=== PATIENT | female | born 1945 | race Caucasian/White ===

== ENCOUNTER 2016-04-26 13:05 | Emergency (ER) | payer MEDICARE ==
[2015-12-11 14:43] VITALS: BMI 29.2
[~2016-04-26 13:05] MED LIST: ATIVAN1 MG PO; ATIVAN2 MG PO; CYMBALTA30 MG PO; EFFEXOR100 MG PO; EFFEXOR37.5 MG PO; FEXOFENADINE HC60 MG PO; FLUTICASONE PRO16 GM NASAL; LIDODERM 5 %1 PATCH TRANSDERM; PEPCID20 MG PO; STRESSTABS WITH1 TAB PO; Stresstabs With Zinc PO; VITAMIN B-12500 MC1 PO; VITAMIN D31000 UNI2 PO; VITAMIN D5000 UNIT PO; ZEBETA10 MG PO; ZEBETA5 MG PO
== END 2016-04-26 15:43 | disposition home or self-care (01) ==
LOC: D.ER 13:05
DX: M54.5 Low back pain (principal)

== ENCOUNTER 2016-05-12 11:34 | Emergency (ER) | payer MEDICARE ==
[2015-12-11 14:43] VITALS: BMI 29.2
== END 2016-05-12 13:54 | disposition home or self-care (01) ==
LOC: D.ER 11:34
DX: M25.551 Pain in right hip (principal)

== ENCOUNTER 2016-05-30 11:14 | Emergency (ER) | payer MEDICARE ==
[2015-12-11 14:43] VITALS: BMI 29.2
== END 2016-05-30 17:39 | disposition home or self-care (01) ==
LOC: D.ER 11:14
DX: M51.36 Other intervertebral disc degeneration, lumbar region (principal); M54.16 Radiculopathy, lumbar region

== ENCOUNTER 2016-06-09 13:43 | Emergency (ER) | payer MEDICARE ==
[2015-12-11 14:43] VITALS: BMI 29.2
== END 2016-06-09 14:40 | disposition home or self-care (01) ==
LOC: D.ER 13:43
DX: G57.00 Lesion of sciatic nerve, unspecified lower limb (principal); M51.16 Intervertebral disc disorders with radiculopathy, lumbar region

== ENCOUNTER 2016-06-19 12:02 | Emergency (ER) | payer MEDICARE ==
[2015-12-11 14:43] VITALS: BMI 29.2
== END 2016-06-19 14:02 | disposition home or self-care (01) ==
LOC: D.ER 12:02
DX: J20.9 Acute bronchitis, unspecified (principal); J06.9 Acute upper respiratory infection, unspecified; H66.91 Otitis media, unspecified, right ear

== ENCOUNTER 2016-07-01 10:30 | Emergency (ER) | payer MEDICARE ==
[2015-12-11 14:43] VITALS: BMI 29.2
== END 2016-07-01 11:45 | disposition home or self-care (01) ==
LOC: D.ER 10:30
DX: M25.551 Pain in right hip (principal)

== ENCOUNTER 2016-07-10 11:06 | Emergency (ER) | payer MEDICARE ==
[2015-12-11 14:43] VITALS: BMI 29.2
== END 2016-07-10 19:40 | disposition home or self-care (01) ==
LOC: D.ER 11:06
DX: M54.41 Lumbago with sciatica, right side (principal); M62.830 Muscle spasm of back; R42 Dizziness and giddiness; W19.XXXA Unspecified fall, initial encounter; Y93.89 Activity, other specified; Y92.019 Unspecified place in single-family (private) house as the place of occurrence of the external cause

== ENCOUNTER 2016-07-12 10:18 | Emergency (ER) | payer MEDICARE ==
[2015-12-11 14:43] VITALS: BMI 29.2
== END 2016-07-12 11:40 | disposition home or self-care (01) ==
LOC: D.ER 10:18
DX: G89.29 Other chronic pain (principal)

== ENCOUNTER 2016-08-21 20:16 | Emergency (ER) | payer MEDICARE ==
[2015-12-11 14:43] VITALS: BMI 29.2
[2016-08-21 20:51] LABS: BASOPHILS 0.4 % (0-2); HEMATOCRIT 42.6 % (36.0-48.0); HEMOGLOBIN 13.4 g/dL (12-16); IMMATURE GRANULOCYTES 0.3 % (0-5); LYMPHOCYTES 28.9 % (15-50); MCH 27.5 pg (26.0-34.0); MCHC 31.5 g/dL (31.0-37.0); MCV 87.3 fL (80.0-100.0); MEAN PLATELET VOLUME 10.2 fL (7.4-10.4); MONOCYTES 10.7 % (2-11); NEUTROPHILS 56.7 % (40-80); PLATELET COUNT 195 10x3/uL (130-400); RBC 4.88 10x6/uL (4.00-5.40); RDW 13.8 % (11.5-14.5); WBC 7.8 10x3/uL (4.8-10.8)
[2016-08-21 21:06] LABS: ALBUMIN 3.5 g/dL (3.4-5.0); ALKALINE PHOSPHATASE 64 U/L (46-116); ALT (SGPT) 22 U/L (10-68); AMYLASE - SERUM 31 U/L (25-115); BILIRUBIN - TOTAL 0.27 mg/dL (0.2-1.3); CALC OSMOLALITY 276 mosm/kg (275-300); CALCIUM 8.7 mg/dL (8.5-10.1); CARBON DIOXIDE 30.1 mmol/L (21.0-32.0); CHLORIDE - SERUM 103 mmol/L (98-107); CREATININE - SERUM 0.7 mg/dL (0.6-1.3); GLUCOSE 102 mg/dL (74-106); LIPASE 165 U/L (73-393); POTASSIUM - SERUM 3.7 mmol/L (3.5-5.1); PROTEIN - SERUM 7.2 g/dL (6.4-8.2); SODIUM 139 mmol/L (136-145); UREA NITROGEN 10 mg/dL (7-18); eGFR NON AFRICAN AMERICAN 88 mL/min (90-120)
[2016-08-21 21:19] LABS: APPEARANCE CLEAR (CLEAR); BILIRUBIN NEGATIVE (NEGATIVE); COLOR YELLOW (YELLOW); GLUCOSE NEGATIVE (NEGATIVE); KETONE NEGATIVE (NEGATIVE); LEUKOCYTE ESTERASE NEGATIVE (NEGATIVE); NITRITE NEGATIVE (NEGATIVE); PROTEIN NEGATIVE (NEGATIVE); UROBILINOGEN NORMAL (NORMAL)
[2016-08-21 21:29] LABS: UDS - AMPHET NEGATIVE QUAL (NEGATIVE); UDS - BARB NEGATIVE QUAL (NEGATIVE); UDS - BENZO NEGATIVE QUAL (NEGATIVE); UDS - COCAINE NEGATIVE QUAL (NEGATIVE); UDS - METH NEGATIVE QUAL (NEGATIVE); UDS - OPIATE NEGATIVE QUAL (NEGATIVE); UDS - PCP NEGATIVE QUAL (NEGATIVE); UDS - THC NEGATIVE QUAL (NEGATIVE)
== END 2016-08-21 22:05 | disposition home or self-care (01) ==
LOC: D.ER 20:16
PROVIDERS: Emergency Medicine; Nurse Practitioner Family
DX: R10.13 Epigastric pain (principal); R11.0 Nausea

== ENCOUNTER 2016-08-28 10:31 | Emergency (ER) | payer MEDICARE ==
[2015-12-11 14:43] VITALS: BMI 29.2
== END 2016-08-28 15:20 | disposition left against medical advice (07) ==
LOC: D.ER 10:31
DX: F41.0 Panic disorder [episodic paroxysmal anxiety] (principal)

== ENCOUNTER → 2016-08-28 | Emergency (ER) | payer MEDICARE ==
[2015-12-11 14:43] VITALS: BMI 29.2
== END | disposition home or self-care (01) ==
LOC: D.ER 10:31
DX: Z02.9 Encounter for administrative examinations, unspecified (principal)

== ENCOUNTER 2016-09-15 15:40 | Emergency (ER) | payer MEDICARE ==
[2015-12-11 14:43] VITALS: BMI 29.2
== END 2016-09-15 18:25 | disposition home or self-care (01) ==
LOC: D.ER 15:40
DX: R10.13 Epigastric pain (principal)

== ENCOUNTER 2016-10-27 20:35 | Emergency (ER) | payer MEDICARE ==
[2015-12-11 14:43] VITALS: BMI 29.2
[2016-10-27 21:06] LABS: BASOPHILS 0.4 % (0-2); EOSINOPHILS 2.5 % (0-7); HEMATOCRIT 41.4 % (36.0-48.0); IMMATURE GRANULOCYTES 0.1 % (0-5); LYMPHOCYTES 31.7 % (15-50); MCH 26.9 pg (26.0-34.0); MCHC 31.4 g/dL (31.0-37.0); MCV 85.7 fL (80.0-100.0); MONOCYTES 10.5 % (2-11); NEUTROPHILS 54.8 % (40-80); PLATELET COUNT 187 10x3/uL (130-400); RBC 4.83 10x6/uL (4.00-5.40); RDW 13.9 % (11.5-14.5); WBC 7.2 10x3/uL (4.8-10.8)
[2016-10-27 21:18] LABS: ALBUMIN 3.5 g/dL (3.4-5.0); ALKALINE PHOSPHATASE 64 U/L (46-116); ALT (SGPT) 24 U/L (10-68); BILIRUBIN - TOTAL 0.28 mg/dL (0.2-1.3); CALC OSMOLALITY 285 mosm/kg (275-300); CALCIUM 8.8 mg/dL (8.5-10.1); CARBON DIOXIDE 29.6 mmol/L (21.0-32.0); CHLORIDE - SERUM 104 mmol/L (98-107); CREATININE - SERUM 0.7 mg/dL (0.6-1.3); GLUCOSE 135 mg/dL (74-106); POTASSIUM - SERUM 3.7 mmol/L (3.5-5.1); PROTEIN - SERUM 7.5 g/dL (6.4-8.2); SODIUM 143 mmol/L (136-145); UREA NITROGEN 9 mg/dL (7-18); eGFR NON AFRICAN AMERICAN 88 mL/min (90-120)
[2016-10-27 21:28] LABS: CHOL - HDL RATIO 3.3 ratio (2.3-4.1); CHOLESTEROL, TOTAL 152 mg/dL (0-200); CKMB 0.8 U/L (0.0-3.6); CREATINE KINASE 84 UL (21-215); HDL CHOLESTEROL 46 mg/dL (32-96); LDL CHOLESTEROL 79 mg/dL (0-100); LDL-HDL RATIO 1.7 ratio (1.5-3.5); TRIGLYCERIDE 139 mg/dL (30-200)
[2016-10-27 21:29] LABS: TROPONIN-I < 0.017 ng/mL (0.000-0.060)
== END 2016-10-27 23:00 | disposition home or self-care (01) ==
LOC: D.ER 20:35
PROVIDERS: Emergency Medicine
DX: R07.9 Chest pain, unspecified (principal); R00.0 Tachycardia, unspecified

== ENCOUNTER 2016-12-01 18:49 | Emergency (ER) | payer MEDICARE ==
[2015-12-11 14:43] VITALS: BMI 29.2
== END 2016-12-01 20:03 | disposition home or self-care (01) ==
LOC: D.ER 18:49
DX: M16.11 Unilateral primary osteoarthritis, right hip (principal); G89.29 Other chronic pain; R00.2 Palpitations; F41.9 Anxiety disorder, unspecified

== ENCOUNTER 2016-12-16 17:29 | Emergency (ER) | payer MEDICARE ==
[2015-12-11 14:43] VITALS: BMI 29.2
== END 2016-12-16 19:35 | disposition home or self-care (01) ==
LOC: D.ER 17:29
DX: F41.0 Panic disorder [episodic paroxysmal anxiety] (principal)

== ENCOUNTER 2016-12-27 17:03 | Emergency (ER) | payer MEDICARE ==
[2015-12-11 14:43] VITALS: BMI 29.2
== END 2016-12-27 18:16 | disposition home or self-care (01) ==
LOC: D.ER 17:03
DX: M25.551 Pain in right hip (principal); G89.29 Other chronic pain; R00.2 Palpitations

== ENCOUNTER 2017-01-09 10:13 | Emergency (ER) | payer MEDICARE ==
[2015-12-11 14:43] VITALS: BMI 29.2
== END 2017-01-09 14:30 | disposition home or self-care (01) ==
LOC: D.ER 10:13
DX: F41.0 Panic disorder [episodic paroxysmal anxiety] (principal); G89.29 Other chronic pain

== ENCOUNTER 2017-01-19 17:13 | Emergency (ER) | payer MEDICARE ==
[2015-12-11 14:43] VITALS: BMI 29.2
[2017-01-19 17:51] LABS: BASOPHILS 0.4 % (0-2); EOSINOPHILS 4.6 % (0-7); HEMATOCRIT 41.2 % (36.0-48.0); HEMOGLOBIN 13.1 g/dL (12-16); IMMATURE GRANULOCYTES 0.3 % (0-5); LYMPHOCYTES 30.7 % (15-50); MCH 27.1 pg (26.0-34.0); MCHC 31.8 g/dL (31.0-37.0); MCV 85.3 fL (80.0-100.0); MEAN PLATELET VOLUME 10.3 fL (7.4-10.4); MONOCYTES 9.3 % (2-11); NEUTROPHILS 54.7 % (40-80); PLATELET COUNT 210 10x3/uL (130-400); RBC 4.83 10x6/uL (4.00-5.40); RDW 13.8 % (11.5-14.5); WBC 7.2 10x3/uL (4.8-10.8)
[2017-01-19 18:06] LABS: ALBUMIN 3.7 g/dL (3.4-5.0); ALKALINE PHOSPHATASE 63 U/L (46-116); ALT (SGPT) 26 U/L (10-68); BILIRUBIN - TOTAL 0.31 mg/dL (0.2-1.3); CALC OSMOLALITY 280 mosm/kg (275-300); CARBON DIOXIDE 30.3 mmol/L (21.0-32.0); CHLORIDE - SERUM 103 mmol/L (98-107); CREATININE - SERUM 0.7 mg/dL (0.6-1.3); GLUCOSE 111 mg/dL (74-106); POTASSIUM - SERUM 4.1 mmol/L (3.5-5.1); PROTEIN - SERUM 7.5 g/dL (6.4-8.2); SODIUM 141 mmol/L (136-145); UREA NITROGEN 11 mg/dL (7-18); eGFR NON AFRICAN AMERICAN 88 mL/min (90-120)
[2017-01-19 18:14] LABS: CKMB 0.9 U/L (0.0-3.6); CREATINE KINASE 96 UL (21-215)
[2017-01-19 18:15] LABS: TROPONIN-I < 0.017 ng/mL (0.000-0.060)
== END 2017-01-19 19:53 | disposition home or self-care (01) ==
LOC: D.ER 17:13
PROVIDERS: Emergency Medicine
DX: F41.9 Anxiety disorder, unspecified (principal); F41.0 Panic disorder [episodic paroxysmal anxiety]

== ENCOUNTER 2017-01-31 19:33 | Emergency (ER) | payer MEDICARE ==
[2015-12-11 14:43] VITALS: BMI 29.2
== END 2017-01-31 21:14 | disposition home or self-care (01) ==
LOC: D.ER 19:33
DX: F41.9 Anxiety disorder, unspecified (principal)

== ENCOUNTER 2017-02-13 19:28 | Emergency (ER) | payer SELFPAY ==
[2015-12-11 14:43] VITALS: BMI 29.2
== END 2017-02-13 20:28 | disposition home or self-care (01) ==
LOC: D.ER 19:28
DX: S39.012A Strain of muscle, fascia and tendon of lower back, initial encounter (principal); X58.XXXA Exposure to other specified factors, initial encounter; Y93.89 Activity, other specified; Y92.029 Unspecified place in mobile home as the place of occurrence of the external cause

== ENCOUNTER 2017-02-18 14:10 | Emergency (ER) | payer MEDICARE ==
[2015-12-11 14:43] VITALS: BMI 29.2
[2017-02-18 16:08] LABS: APPEARANCE CLEAR (CLEAR); BILIRUBIN NEGATIVE (NEGATIVE); COLOR YELLOW (YELLOW); GLUCOSE NEGATIVE (NEGATIVE); KETONE NEGATIVE (NEGATIVE); NITRITE NEGATIVE (NEGATIVE); PROTEIN NEGATIVE (NEGATIVE); SPECIFIC GRAVITY 1.015 (1.005-1.020); UROBILINOGEN NORMAL (NORMAL)
== END 2017-02-18 16:00 | disposition home or self-care (01) ==
LOC: D.ER 14:10
PROVIDERS: Nurse Practitioner Family
DX: M54.5 Low back pain (principal); S39.012A Strain of muscle, fascia and tendon of lower back, initial encounter; X50.0XXA Overexertion from strenuous movement or load, initial encounter; Y93.89 Activity, other specified; Y92.89 Other specified places as the place of occurrence of the external cause; M62.838 Other muscle spasm

== ENCOUNTER 2017-02-27 14:54 | Emergency (ER) | payer MEDICARE ==
[2015-12-11 14:43] VITALS: BMI 29.2
== END 2017-02-27 16:41 | disposition home or self-care (01) ==
LOC: D.ER 14:54
DX: F43.20 Adjustment disorder, unspecified (principal); F41.9 Anxiety disorder, unspecified

== ENCOUNTER 2017-03-02 18:16 | Emergency (ER) | payer MEDICARE ==
[2015-12-11 14:43] VITALS: BMI 29.2
== END 2017-03-02 19:13 | disposition home or self-care (01) ==
LOC: D.ER 18:16
DX: F41.9 Anxiety disorder, unspecified (principal); F43.20 Adjustment disorder, unspecified; M25.551 Pain in right hip

== ENCOUNTER 2017-03-13 19:38 | Emergency (ER) | payer MEDICARE ==
[2015-12-11 14:43] VITALS: BMI 29.2
== END 2017-03-13 22:36 | disposition home or self-care (01) ==
LOC: D.ER 19:38
DX: M54.12 Radiculopathy, cervical region (principal); F43.20 Adjustment disorder, unspecified

== ENCOUNTER 2017-03-15 20:25 | Emergency (ER) | payer MEDICARE ==
[2015-12-11 14:43] VITALS: BMI 29.2
== END 2017-03-15 21:42 | disposition home or self-care (01) ==
LOC: D.ER 20:25
DX: M16.11 Unilateral primary osteoarthritis, right hip (principal)

== ENCOUNTER 2017-04-13 14:24 | Emergency (ER) | payer MEDICARE ==
[2015-12-11 14:43] VITALS: BMI 29.2
== END 2017-04-13 16:54 | disposition home or self-care (01) ==
LOC: D.ER 14:24
DX: S70.01XA Contusion of right hip, initial encounter (principal); W07.XXXA Fall from chair, initial encounter; Y93.89 Activity, other specified; Y92.89 Other specified places as the place of occurrence of the external cause

== ENCOUNTER 2017-04-14 09:29 | Emergency (ER) | payer MEDICARE ==
[2015-12-11 14:43] VITALS: BMI 29.2
== END 2017-04-14 11:25 | disposition home or self-care (01) ==
LOC: D.ER 09:29
DX: F41.9 Anxiety disorder, unspecified (principal)

== ENCOUNTER 2017-04-17 12:59 | Emergency (ER) | payer MEDICARE ==
[2015-12-11 14:43] VITALS: BMI 29.2
== END 2017-04-17 14:22 | disposition left against medical advice (07) ==
LOC: D.ER 12:59
DX: F41.0 Panic disorder [episodic paroxysmal anxiety] (principal)

== ENCOUNTER 2017-04-19 12:56 | Emergency (ER) | payer MEDICARE ==
[2015-12-11 14:43] VITALS: BMI 29.2
== END 2017-04-19 14:30 | disposition home or self-care (01) ==
LOC: D.ER 12:56
DX: F41.9 Anxiety disorder, unspecified (principal)

== ENCOUNTER 2017-05-03 15:12 | Emergency (ER) | payer MEDICARE ==
[2015-12-11 14:43] VITALS: BMI 29.2
== END 2017-05-03 17:51 | disposition home or self-care (01) ==
LOC: D.ER 15:12
DX: Z57.4 Occupational exposure to toxic agents in agriculture (principal); R42 Dizziness and giddiness

== ENCOUNTER 2017-05-10 16:56 | Emergency (ER) | payer MEDICARE ==
[2015-12-11 14:43] VITALS: BMI 29.2
== END 2017-05-10 18:35 | disposition home or self-care (01) ==
LOC: D.ER 16:56
DX: M62.838 Other muscle spasm (principal); M25.551 Pain in right hip

== ENCOUNTER 2017-05-17 15:15 | Emergency (ER) | payer MEDICARE ==
[2015-12-11 14:43] VITALS: BMI 29.2
== END 2017-05-17 15:20 | disposition left against medical advice (07) ==
LOC: D.ER 15:15
DX: J40 Bronchitis, not specified as acute or chronic (principal); J06.9 Acute upper respiratory infection, unspecified; M25.50 Pain in unspecified joint

== ENCOUNTER 2017-05-18 11:57 | Emergency (ER) | payer MEDICARE ==
[2015-12-11 14:43] VITALS: BMI 29.2
== END 2017-05-18 15:20 | disposition home or self-care (01) ==
LOC: D.ER 11:57
DX: J40 Bronchitis, not specified as acute or chronic (principal); J06.9 Acute upper respiratory infection, unspecified; M25.50 Pain in unspecified joint

== ENCOUNTER 2017-05-20 23:13 | Emergency (ER) | payer MEDICARE ==
[2015-12-11 14:43] VITALS: BMI 29.2
== END 2017-05-21 01:44 | disposition home or self-care (01) ==
LOC: D.ER 23:13
DX: J20.9 Acute bronchitis, unspecified (principal)

== ENCOUNTER 2017-05-31 19:25 | Emergency (ER) | payer MEDICARE ==
[2015-12-11 14:43] VITALS: BMI 29.2
== END 2017-05-31 21:37 | disposition home or self-care (01) ==
LOC: D.ER 19:25
DX: M25.551 Pain in right hip (principal); S39.012A Strain of muscle, fascia and tendon of lower back, initial encounter; X50.0XXA Overexertion from strenuous movement or load, initial encounter; Y93.89 Activity, other specified; Y92.89 Other specified places as the place of occurrence of the external cause

== ENCOUNTER 2017-06-18 14:02 | Emergency (ER) | payer MEDICARE ==
[2015-12-11 14:43] VITALS: BMI 29.2
[2017-06-18 14:41] LABS: BASOPHILS 0.3 % (0-2); EOSINOPHILS 2.4 % (0-7); HEMATOCRIT 42.5 % (36.0-48.0); HEMOGLOBIN 13.6 g/dL (12-16); IMMATURE GRANULOCYTES 0.1 % (0-5); LYMPHOCYTES 28.4 % (15-50); MCH 27.5 pg (26.0-34.0); MEAN PLATELET VOLUME 10.2 fL (7.4-10.4); MONOCYTES 8.9 % (2-11); NEUTROPHILS 59.9 % (40-80); PLATELET COUNT 173 10x3/uL (130-400); RBC 4.94 10x6/uL (4.00-5.40)
[2017-06-18 14:52] LABS: APPEARANCE CLEAR (CLEAR); BACTERIA MODERATE /hpf (NONE SEEN); BILIRUBIN NEGATIVE (NEGATIVE); COLOR YELLOW (YELLOW); GLUCOSE NEGATIVE (NEGATIVE); KETONE NEGATIVE (NEGATIVE); MUCUS <1+ /lpf (NONE SEEN); NITRITE NEGATIVE (NEGATIVE); PROTEIN NEGATIVE (NEGATIVE); SPECIFIC GRAVITY 1.015 (1.005-1.020); UROBILINOGEN NORMAL (NORMAL)
[2017-06-18 15:02] LABS: ALBUMIN 3.7 g/dL (3.4-5.0); ALKALINE PHOSPHATASE 55 U/L (46-116); ALT (SGPT) 27 U/L (10-68); BILIRUBIN - TOTAL 0.49 mg/dL (0.2-1.3); CALC OSMOLALITY 275 mosm/kg (275-300); CALCIUM 8.8 mg/dL (8.5-10.1); CHLORIDE - SERUM 104 mmol/L (98-107); CREATININE - SERUM 0.7 mg/dL (0.6-1.3); GLUCOSE 97 mg/dL (74-106); POTASSIUM - SERUM 3.3 mmol/L (3.5-5.1); PROTEIN - SERUM 7.2 g/dL (6.4-8.2); SODIUM 139 mmol/L (136-145); UREA NITROGEN 8 mg/dL (7-18); eGFR NON AFRICAN AMERICAN 88 mL/min (90-120)
[2017-08-12] MEDS ORDERED: CELEXA20 MG PO (19:39)
[2017-08-12] MEDS ORDERED: BISOPROLOL-HCT1 EAC1 PO (19:39)
[2017-08-12] MEDS ORDERED: ATIVAN1 MG PO (19:49)
[2017-08-14] MEDS ORDERED: CELEXA20 MG PO (09:38)
[2017-08-14] MEDS ORDERED: ATIVAN1 MG PO (09:39)
[2017-08-14] MEDS ORDERED: LOMOTIL TABLET1 TAB PO (09:39)
== END 2017-06-18 17:13 | disposition home or self-care (01) ==
LOC: D.ER 14:02
PROVIDERS: Emergency Medicine
DX: K29.00 Acute gastritis without bleeding (principal); F41.9 Anxiety disorder, unspecified

== ENCOUNTER 2017-06-21 11:58 | Emergency (ER) | payer MEDICARE ==
[2015-12-11 14:43] VITALS: BMI 29.2
[2017-08-12] MEDS ORDERED: CELEXA20 MG PO (19:39)
[2017-08-12] MEDS ORDERED: BISOPROLOL-HCT1 EAC1 PO (19:39)
[2017-08-12] MEDS ORDERED: ATIVAN1 MG PO (19:49)
[2017-08-14] MEDS ORDERED: CELEXA20 MG PO (09:38)
[2017-08-14] MEDS ORDERED: ATIVAN1 MG PO (09:39)
[2017-08-14] MEDS ORDERED: LOMOTIL TABLET1 TAB PO (09:39)
== END 2017-06-21 12:56 | disposition home or self-care (01) ==
LOC: D.ER 11:58
DX: M54.16 Radiculopathy, lumbar region (principal); W07.XXXA Fall from chair, initial encounter; Y93.89 Activity, other specified; Y92.019 Unspecified place in single-family (private) house as the place of occurrence of the external cause

== ENCOUNTER 2017-06-26 22:52 | Emergency (ER) | payer MEDICARE ==
[2015-12-11 14:43] VITALS: BMI 29.2
[2017-08-12] MEDS ORDERED: BISOPROLOL-HCT1 EAC1 PO (19:39)
[2017-08-12] MEDS ORDERED: CELEXA20 MG PO (19:39)
[2017-08-12] MEDS ORDERED: ATIVAN1 MG PO (19:49)
[2017-08-14] MEDS ORDERED: CELEXA20 MG PO (09:38)
[2017-08-14] MEDS ORDERED: ATIVAN1 MG PO (09:39)
[2017-08-14] MEDS ORDERED: LOMOTIL TABLET1 TAB PO (09:39)
== END 2017-06-27 00:49 | disposition home or self-care (01) ==
LOC: D.ER 22:52
DX: M25.551 Pain in right hip (principal); G89.29 Other chronic pain

== ENCOUNTER 2017-06-27 17:33 | Emergency (ER) | payer MEDICARE ==
[2015-12-11 14:43] VITALS: BMI 29.2
[2017-08-12] MEDS ORDERED: BISOPROLOL-HCT1 EAC1 PO (19:39)
[2017-08-12] MEDS ORDERED: CELEXA20 MG PO (19:39)
[2017-08-12] MEDS ORDERED: ATIVAN1 MG PO (19:49)
[2017-08-14] MEDS ORDERED: CELEXA20 MG PO (09:38)
[2017-08-14] MEDS ORDERED: ATIVAN1 MG PO (09:39)
[2017-08-14] MEDS ORDERED: LOMOTIL TABLET1 TAB PO (09:39)
== END 2017-06-27 20:49 | disposition home or self-care (01) ==
LOC: D.ER 17:33
DX: M25.552 Pain in left hip (principal); M62.838 Other muscle spasm

== ENCOUNTER 2017-07-05 11:19 | Emergency (ER) | payer MEDICARE ==
[2015-12-11 14:43] VITALS: BMI 29.2
[2017-08-12] MEDS ORDERED: BISOPROLOL-HCT1 EAC1 PO (19:39)
[2017-08-12] MEDS ORDERED: CELEXA20 MG PO (19:39)
[2017-08-12] MEDS ORDERED: ATIVAN1 MG PO (19:49)
[2017-08-14] MEDS ORDERED: CELEXA20 MG PO (09:38)
[2017-08-14] MEDS ORDERED: ATIVAN1 MG PO (09:39)
[2017-08-14] MEDS ORDERED: LOMOTIL TABLET1 TAB PO (09:39)
== END 2017-07-05 12:21 | disposition home or self-care (01) ==
LOC: D.ER 11:19
DX: F43.22 Adjustment disorder with anxiety (principal); F41.1 Generalized anxiety disorder

== ENCOUNTER 2017-07-15 16:26 | Emergency (ER) | payer MEDICARE ==
[2015-12-11 14:43] VITALS: BMI 29.2
[2017-08-12] MEDS ORDERED: CELEXA20 MG PO (19:39)
[2017-08-12] MEDS ORDERED: BISOPROLOL-HCT1 EAC1 PO (19:39)
[2017-08-12] MEDS ORDERED: ATIVAN1 MG PO (19:49)
[2017-08-14] MEDS ORDERED: CELEXA20 MG PO (09:38)
[2017-08-14] MEDS ORDERED: ATIVAN1 MG PO (09:39)
[2017-08-14] MEDS ORDERED: LOMOTIL TABLET1 TAB PO (09:39)
[2017-09-26 14:49] VITALS: BMI 23.9
== END 2017-07-15 17:55 | disposition left against medical advice (07) ==
LOC: D.ER 16:26
DX: S79.911A Unspecified injury of right hip, initial encounter (principal); X58.XXXA Exposure to other specified factors, initial encounter; Y93.89 Activity, other specified; Y92.89 Other specified places as the place of occurrence of the external cause

== ENCOUNTER 2017-07-15 20:00 | Emergency (ER) | payer MEDICARE ==
[2015-12-11 14:43] VITALS: BMI 29.2
[2017-08-12] MEDS ORDERED: BISOPROLOL-HCT1 EAC1 PO (19:39)
[2017-08-12] MEDS ORDERED: CELEXA20 MG PO (19:39)
[2017-08-12] MEDS ORDERED: ATIVAN1 MG PO (19:49)
[2017-08-14] MEDS ORDERED: CELEXA20 MG PO (09:38)
[2017-08-14] MEDS ORDERED: LOMOTIL TABLET1 TAB PO (09:39)
[2017-08-14] MEDS ORDERED: ATIVAN1 MG PO (09:39)
== END 2017-07-15 21:30 | disposition home or self-care (01) ==
LOC: D.ER 20:00
DX: S60.211A Contusion of right wrist, initial encounter (principal); S50.12XA Contusion of left forearm, initial encounter; S30.0XXA Contusion of lower back and pelvis, initial encounter; S70.01XA Contusion of right hip, initial encounter; Y04.2XXA Assault by strike against or bumped into by another person, initial encounter; Y93.89 Activity, other specified; Y92.59 Other trade areas as the place of occurrence of the external cause

== ENCOUNTER 2017-07-19 17:41 | Emergency (ER) | payer MEDICARE ==
[2015-12-11 14:43] VITALS: BMI 29.2
[2017-08-12] MEDS ORDERED: CELEXA20 MG PO (19:39)
[2017-08-12] MEDS ORDERED: BISOPROLOL-HCT1 EAC1 PO (19:39)
[2017-08-12] MEDS ORDERED: ATIVAN1 MG PO (19:49)
[2017-08-14] MEDS ORDERED: CELEXA20 MG PO (09:38)
[2017-08-14] MEDS ORDERED: ATIVAN1 MG PO (09:39)
[2017-08-14] MEDS ORDERED: LOMOTIL TABLET1 TAB PO (09:39)
== END 2017-07-19 19:15 | disposition home or self-care (01) ==
LOC: D.ER 17:41
DX: M25.551 Pain in right hip (principal); M79.601 Pain in right arm; F41.9 Anxiety disorder, unspecified

== ENCOUNTER 2017-07-25 21:29 | Emergency (ER) | payer MEDICARE ==
[2015-12-11 14:43] VITALS: BMI 29.2
[2017-07-25 22:29] LABS: BASOPHILS 0.4 % (0-2); EOSINOPHILS 2.8 % (0-7); HEMATOCRIT 39.6 % (36.0-48.0); HEMOGLOBIN 12.5 g/dL (12-16); LYMPHOCYTES 33.8 % (15-50); MCH 27.5 pg (26.0-34.0); MCHC 31.6 g/dL (31.0-37.0); MCV 87.2 fL (80.0-100.0); MONOCYTES 11.7 % (2-11); NEUTROPHILS 51.3 % (40-80); PLATELET COUNT 174 10x3/uL (130-400); RBC 4.54 10x6/uL (4.00-5.40); RDW 13.6 % (11.5-14.5); WBC 5.1 10x3/uL (4.8-10.8)
[2017-07-25 22:47] LABS: ALBUMIN 3.4 g/dL (3.4-5.0); ALKALINE PHOSPHATASE 54 U/L (46-116); ALT (SGPT) 20 U/L (10-68); CALC OSMOLALITY 280 mosm/kg (275-300); CALCIUM 8.5 mg/dL (8.5-10.1); CARBON DIOXIDE 29.4 mmol/L (21.0-32.0); CHLORIDE - SERUM 105 mmol/L (98-107); CREATININE - SERUM 0.7 mg/dL (0.6-1.3); GLUCOSE 111 mg/dL (74-106); POTASSIUM - SERUM 3.6 mmol/L (3.5-5.1); PROTEIN - SERUM 6.5 g/dL (6.4-8.2); SODIUM 141 mmol/L (136-145); UREA NITROGEN 11 mg/dL (7-18); eGFR NON AFRICAN AMERICAN 87 mL/min (90-120)
[2017-07-25 22:58] LABS: CHOL - HDL RATIO 2.9 ratio (2.3-4.1); CHOLESTEROL, TOTAL 172 mg/dL (0-200); CKMB 0.8 U/L (0.0-3.6); CREATINE KINASE 59 UL (21-215); HDL CHOLESTEROL 60 mg/dL (32-96); LDL CHOLESTEROL 99 mg/dL (0-100); LDL-HDL RATIO 1.7 ratio (1.5-3.5); TRIGLYCERIDE 68 mg/dL (30-200); TROPONIN-I < 0.017 ng/mL (0.000-0.060)
[2017-08-12] MEDS ORDERED: BISOPROLOL-HCT1 EAC1 PO (19:39)
[2017-08-12] MEDS ORDERED: CELEXA20 MG PO (19:39)
[2017-08-12] MEDS ORDERED: ATIVAN1 MG PO (19:49)
[2017-08-14] MEDS ORDERED: CELEXA20 MG PO (09:38)
[2017-08-14] MEDS ORDERED: ATIVAN1 MG PO (09:39)
[2017-08-14] MEDS ORDERED: LOMOTIL TABLET1 TAB PO (09:39)
== END 2017-07-25 23:41 | disposition home or self-care (01) ==
LOC: D.ER 21:29
PROVIDERS: Emergency Medicine
DX: F41.9 Anxiety disorder, unspecified (principal); Z76.5 Malingerer [conscious simulation]

== ENCOUNTER 2017-08-03 02:35 | Emergency (ER) | payer MEDICARE ==
[2015-12-11 14:43] VITALS: BMI 29.2
[2017-08-03 03:12] LABS: APPEARANCE CLEAR (CLEAR); BILIRUBIN NEGATIVE (NEGATIVE); COLOR YELLOW (YELLOW); GLUCOSE NEGATIVE (NEGATIVE); KETONE NEGATIVE (NEGATIVE); NITRITE NEGATIVE (NEGATIVE); PROTEIN NEGATIVE (NEGATIVE); UROBILINOGEN NORMAL (NORMAL)
[2017-08-03 03:29] LABS: BASOPHILS 0.3 % (0-2); EOSINOPHILS 2.1 % (0-7); HEMATOCRIT 41.1 % (36.0-48.0); HEMOGLOBIN 12.9 g/dL (12-16); IMMATURE GRANULOCYTES 0.2 % (0-5); LYMPHOCYTES 36.4 % (15-50); MCH 27.9 pg (26.0-34.0); MCHC 31.4 g/dL (31.0-37.0); MCV 88.8 fL (80.0-100.0); MEAN PLATELET VOLUME 10.2 fL (7.4-10.4); MONOCYTES 10.2 % (2-11); NEUTROPHILS 50.8 % (40-80); PLATELET COUNT 174 10x3/uL (130-400); RBC 4.63 10x6/uL (4.00-5.40); RDW 13.9 % (11.5-14.5); WBC 5.8 10x3/uL (4.8-10.8)
[2017-08-03 03:44] LABS: ALBUMIN 3.3 g/dL (3.4-5.0); ALKALINE PHOSPHATASE 58 U/L (46-116); ALT (SGPT) 18 U/L (10-68); AMYLASE - SERUM 24 U/L (25-115); BILIRUBIN - TOTAL 0.35 mg/dL (0.2-1.3); CALC OSMOLALITY 286 mosm/kg (275-300); CALCIUM 8.5 mg/dL (8.5-10.1); CARBON DIOXIDE 31.9 mmol/L (21.0-32.0); CHLORIDE - SERUM 107 mmol/L (98-107); CREATININE - SERUM 0.8 mg/dL (0.6-1.3); GLUCOSE 84 mg/dL (74-106); LIPASE 105 U/L (73-393); POTASSIUM - SERUM 3.5 mmol/L (3.5-5.1); PROTEIN - SERUM 6.5 g/dL (6.4-8.2); SODIUM 145 mmol/L (136-145); UREA NITROGEN 9 mg/dL (7-18); eGFR NON AFRICAN AMERICAN 75 mL/min (90-120)
[2017-08-12] MEDS ORDERED: CELEXA20 MG PO (19:39)
[2017-08-12] MEDS ORDERED: BISOPROLOL-HCT1 EAC1 PO (19:39)
[2017-08-12] MEDS ORDERED: ATIVAN1 MG PO (19:49)
[2017-08-14] MEDS ORDERED: CELEXA20 MG PO (09:38)
[2017-08-14] MEDS ORDERED: ATIVAN1 MG PO (09:39)
[2017-08-14] MEDS ORDERED: LOMOTIL TABLET1 TAB PO (09:39)
== END 2017-08-03 04:10 | disposition home or self-care (01) ==
LOC: D.ER 02:35
PROVIDERS: Family Medicine
DX: Z76.5 Malingerer [conscious simulation] (principal)

== ENCOUNTER 2017-08-10 10:29 | Emergency (ER) | payer MEDICARE ==
[2015-12-11 14:43] VITALS: BMI 29.2
[2017-08-10 11:10] LABS: BASOPHILS 0.1 % (0-2); EOSINOPHILS 0.4 % (0-7); HEMATOCRIT 42.8 % (36.0-48.0); HEMOGLOBIN 13.9 g/dL (12-16); IMMATURE GRANULOCYTES 0.1 % (0-5); LYMPHOCYTES 17.4 % (15-50); MCH 28.2 pg (26.0-34.0); MCHC 32.5 g/dL (31.0-37.0); MCV 86.8 fL (80.0-100.0); MEAN PLATELET VOLUME 10.2 fL (7.4-10.4); MONOCYTES 7.6 % (2-11); NEUTROPHILS 74.4 % (40-80); PLATELET COUNT 190 10x3/uL (130-400); RBC 4.93 10x6/uL (4.00-5.40); RDW 13.3 % (11.5-14.5); WBC 7.3 10x3/uL (4.8-10.8)
[2017-08-10 11:24] LABS: ALBUMIN 3.5 g/dL (3.4-5.0); ALKALINE PHOSPHATASE 55 U/L (46-116); ALT (SGPT) 16 U/L (10-68); BILIRUBIN - TOTAL 0.75 mg/dL (0.2-1.3); CALC OSMOLALITY 280 mosm/kg (275-300); CALCIUM 8.4 mg/dL (8.5-10.1); CARBON DIOXIDE 24.9 mmol/L (21.0-32.0); CHLORIDE - SERUM 103 mmol/L (98-107); CREATININE - SERUM 0.8 mg/dL (0.6-1.3); GLUCOSE 186 mg/dL (74-106); POTASSIUM - SERUM 3.1 mmol/L (3.5-5.1); SODIUM 138 mmol/L (136-145); UREA NITROGEN 12 mg/dL (7-18); eGFR NON AFRICAN AMERICAN 75 mL/min (90-120)
[2017-08-12] MEDS ORDERED: CELEXA20 MG PO (19:39)
[2017-08-12] MEDS ORDERED: BISOPROLOL-HCT1 EAC1 PO (19:39)
[2017-08-12] MEDS ORDERED: ATIVAN1 MG PO (19:49)
[2017-08-14] MEDS ORDERED: CELEXA20 MG PO (09:38)
[2017-08-14] MEDS ORDERED: LOMOTIL TABLET1 TAB PO (09:39)
[2017-08-14] MEDS ORDERED: ATIVAN1 MG PO (09:39)
== END 2017-08-10 11:17 | disposition home or self-care (01) ==
LOC: D.ER 10:29
PROVIDERS: Emergency Medicine
DX: R10.13 Epigastric pain (principal)

== ENCOUNTER 2017-08-16 13:07 | Emergency (ER) | payer MEDICARE ==
[2017-08-13 11:08] VITALS: BMI 22.5
[~2017-08-16 13:07] MED LIST changes: +BISOPROLOL-HCT1 EAC1 PO; +CELEXA20 MG PO; +LOMOTIL TABLET1 TAB PO
== END 2017-08-16 14:11 | disposition home or self-care (01) ==
LOC: D.ER 13:07
DX: F43.20 Adjustment disorder, unspecified (principal); F32.9 Major depressive disorder, single episode, unspecified

== ENCOUNTER 2017-08-23 17:41 | Inpatient (IN) | payer MEDICARE ==
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
--- NOTE | ~2017-08-23 | PN ---
PATIENT:ANTONIO IGLESIAS MEDICAL RECORD: [id number] LOCATION:[facility] ADMISSION DATE: 08/23/17 PROGRESS NOTE DATE OF SERVICE: 08/26/2017 SUBJECTIVE: No new complaint. OBJECTIVE: The patient has done well over the last 24 hours. She did sleep well. She is alert and oriented this morning. Affect is bland. Speech is fluent. Content of thought is negative for overt psychosis. Sensorium is unchanged. ASSESSMENT: No change in diagnosis. PLAN: 1. Continue current medication regimen. 2. Continue supportive therapy. TRANSINT:[id number] Voice Confirmation ID: [id number] DOCUMENT ID: [id number] WINSTON FORMAN III, MD at 1026 CC: [id number] DICTATION DATE: 08/26/17 1110 GYNECOLOGIST: 08/26/17 1208 ADM IN [facility] [address] [place] [address]
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
--- NOTE | ~2017-08-23 | PN ---
PATIENT:ANTONIO IGLESIAS MEDICAL RECORD: [id number] LOCATION:[facility]113 ADMISSION DATE: 08/23/17 PROGRESS NOTE DATE OF SERVICE: 08/27/2017 SUBJECTIVE: No new complaint. OBJECTIVE: The patient has continued to maintain well. There has been absolutely no evidence whatsoever of any suicidal ideation or intent. The patient has been cooperative. On exam, mood is euthymic. Affect is bland. Speech is fluent. Content of thought negative for suicidal ideation or psychosis. Sensorium shows no change. ASSESSMENT: No change in diagnosis. PLAN: 1. Maintain present medication. 2. Anticipate discharge tomorrow. TRANSINT:[id number] Voice Confirmation ID: [id number] DOCUMENT ID: [id number] WINSTON FORMAN III, MD at 1015 CC: [id number] DICTATION DATE: 08/27/17 1111 ANGLE BENDER: 08/27/17 1454 ADM IN [facility] [address] [place] [address]
[2017-08-23 18:35] LABS: APPEARANCE HAZY (CLEAR); BILIRUBIN NEGATIVE (NEGATIVE); COLOR YELLOW (YELLOW); GLUCOSE NEGATIVE (NEGATIVE); KETONE NEGATIVE (NEGATIVE); NITRITE NEGATIVE (NEGATIVE); PROTEIN NEGATIVE (NEGATIVE); SPECIFIC GRAVITY 1.015 (1.005-1.020); UROBILINOGEN NORMAL (NORMAL)
[2017-08-23 18:36] LABS: WHITE CELLS - URINE 0-5 /hpf (0-5)
[2017-08-23 18:37] LABS: BACTERIA MANY /hpf (NONE SEEN); EPITHELIAL CELLS 0-5 /hpf (0-5); RED CELLS - URINE 0-5 /hpf (0-5)
[2017-08-23 18:38] LABS: UDS - AMPHET NEGATIVE QUAL (NEGATIVE); UDS - BARB NEGATIVE QUAL (NEGATIVE); UDS - BENZO POSITIVE QUAL (NEGATIVE); UDS - COCAINE NEGATIVE QUAL (NEGATIVE); UDS - OPIATE NEGATIVE QUAL (NEGATIVE); UDS - PCP NEGATIVE QUAL (NEGATIVE); UDS - THC NEGATIVE QUAL (NEGATIVE)
[2017-08-23 18:45] LABS: BASOPHILS 0.3 % (0-2); EOSINOPHILS 1.6 % (0-7); HEMATOCRIT 43.2 % (36.0-48.0); HEMOGLOBIN 13.7 g/dL (12-16); IMMATURE GRANULOCYTES 0.1 % (0-5); LYMPHOCYTES 26.4 % (15-50); MCH 27.9 pg (26.0-34.0); MCHC 31.7 g/dL (31.0-37.0); MEAN PLATELET VOLUME 10.1 fL (7.4-10.4); MONOCYTES 7.6 % (2-11); PLATELET COUNT 190 10x3/uL (130-400); RBC 4.91 10x6/uL (4.00-5.40); RDW 13.5 % (11.5-14.5); WBC 6.9 10x3/uL (4.8-10.8)
[2017-08-23 18:59] LABS: ALBUMIN 3.7 g/dL (3.4-5.0); ALKALINE PHOSPHATASE 61 U/L (46-116); ALT (SGPT) 22 U/L (10-68); CALC OSMOLALITY 277 mosm/kg (275-300); CARBON DIOXIDE 27.8 mmol/L (21.0-32.0); CHLORIDE - SERUM 104 mmol/L (98-107); CREATININE - SERUM 0.8 mg/dL (0.6-1.3); GLUCOSE 123 mg/dL (74-106); POTASSIUM - SERUM 3.2 mmol/L (3.5-5.1); PROTEIN - SERUM 7.1 g/dL (6.4-8.2); SODIUM 140 mmol/L (136-145); UREA NITROGEN 6 mg/dL (7-18); eGFR NON AFRICAN AMERICAN 75 mL/min (90-120)
[2017-08-24 06:12] VITALS: BP 159/81; BMI 23.0
[2017-08-24 06:56] LABS: BASOPHILS 0.2 % (0-2); EOSINOPHILS 1.4 % (0-7); HEMATOCRIT 43.7 % (36.0-48.0); HEMOGLOBIN 13.8 g/dL (12-16); LYMPHOCYTES 31.5 % (15-50); MCH 27.7 pg (26.0-34.0); MCHC 31.6 g/dL (31.0-37.0); MCV 87.8 fL (80.0-100.0); MEAN PLATELET VOLUME 9.9 fL (7.4-10.4); MONOCYTES 9.1 % (2-11); NEUTROPHILS 57.8 % (40-80); PLATELET COUNT 170 10x3/uL (130-400); RBC 4.98 10x6/uL (4.00-5.40); RDW 13.5 % (11.5-14.5); WBC 5.2 10x3/uL (4.8-10.8)
[2017-08-24 07:32] LABS: ALBUMIN 3.5 g/dL (3.4-5.0); ALKALINE PHOSPHATASE 55 U/L (46-116); ALT (SGPT) 20 U/L (10-68); CALC OSMOLALITY 282 mosm/kg (275-300); CALCIUM 8.8 mg/dL (8.5-10.1); CARBON DIOXIDE 27.9 mmol/L (21.0-32.0); CHLORIDE - SERUM 106 mmol/L (98-107); CHOL - HDL RATIO 3.1 ratio (2.3-4.1); CHOLESTEROL, TOTAL 197 mg/dL (0-200); CREATININE - SERUM 0.7 mg/dL (0.6-1.3); GLUCOSE 95 mg/dL (74-106); HDL CHOLESTEROL 64 mg/dL (32-96); LDL CHOLESTEROL 120 mg/dL (0-100); LDL-HDL RATIO 1.9 ratio (1.5-3.5); PROTEIN - SERUM 6.5 g/dL (6.4-8.2); SODIUM 143 mmol/L (136-145); THYROID STIMULATING HORMONE 1.62 uIU/mL (0.36-3.74); TRIGLYCERIDE 68 mg/dL (30-200); UREA NITROGEN 6 mg/dL (7-18); eGFR NON AFRICAN AMERICAN 87 mL/min (90-120)
[2017-08-24 08:49] VITALS: BP 130/69
[2017-08-24 20:15] VITALS: BP 119/62
[2017-08-25 09:39] VITALS: BP 122/77
[2017-08-25 10:11] VITALS: BMI 22.4
[2017-08-25 14:57] VITALS: Wt 59.1 kg
[2017-08-25 20:32] VITALS: BP 127/66
[2017-08-26 08:21] LABS: FOLATE (FOLIC ACID) - SERUM 11.2 ng/mL (>3.0); RAPID PLASMA REAGIN Non Reactive (Non Reactive)
[2017-08-26 08:26] VITALS: BP 113/61
[2017-08-26 09:17] LABS: VITAMIN D 25 HYDROXY 17.4 ng/mL (30.0-100.0)
[2017-08-26 20:21] VITALS: BP 119/56
[2017-08-27 09:33] VITALS: BP 104/56
[2017-08-27] MEDS ORDERED: PEPCID20 MG PO (11:18)
[2017-08-27] MEDS ORDERED: FEXOFENADINE HC60 MG PO (11:18)
[2017-08-27] MEDS ORDERED: VITAMIN D31000 UNI2 PO (11:19)
[2017-08-27 19:21] VITALS: BP 112/50
[2017-08-28 07:00] VITALS: BP 127/66
== END 2017-08-28 11:15 | disposition home or self-care (01) | DRG 885 ==
LOC: D.ER 17:41 → D.PSYCH 21:19
PROVIDERS: Emergency Medicine; Psychiatry & Neurology Psychiatry
DX: F33.9 Major depressive disorder, recurrent, unspecified (principal); R45.851 Suicidal ideations; F41.9 Anxiety disorder, unspecified; I10 Essential (primary) hypertension; K29.70 Gastritis, unspecified, without bleeding; G89.29 Other chronic pain; M54.5 Low back pain; K21.9 Gastro-esophageal reflux disease without esophagitis; R19.7 Diarrhea, unspecified; E55.9 Vitamin D deficiency, unspecified; J30.9 Allergic rhinitis, unspecified; M25.551 Pain in right hip

== ENCOUNTER 2017-08-28 14:14 | Emergency (ER) | payer MEDICARE ==
[2017-08-25 14:57] VITALS: BMI 22.3
[2017-08-28 14:46] LABS: BASOPHILS 0.2 % (0-2); HEMOGLOBIN 13.3 g/dL (12-16); IMMATURE GRANULOCYTES 0.2 % (0-5); LYMPHOCYTES 22.3 % (15-50); MCH 28.2 pg (26.0-34.0); MCHC 31.7 g/dL (31.0-37.0); MEAN PLATELET VOLUME 10.3 fL (7.4-10.4); MONOCYTES 6.2 % (2-11); NEUTROPHILS 70.1 % (40-80); PLATELET COUNT 193 10x3/uL (130-400); RBC 4.72 10x6/uL (4.00-5.40); RDW 13.7 % (11.5-14.5); WBC 8.3 10x3/uL (4.8-10.8)
[2017-08-28 15:27] LABS: APPEARANCE CLEAR (CLEAR); BILIRUBIN NEGATIVE (NEGATIVE); COLOR YELLOW (YELLOW); GLUCOSE NEGATIVE (NEGATIVE); KETONE NEGATIVE (NEGATIVE); NITRITE NEGATIVE (NEGATIVE); PROTEIN NEGATIVE (NEGATIVE); UROBILINOGEN NORMAL (NORMAL)
[2017-08-28 15:30] LABS: EPITHELIAL CELLS 0-5 /hpf (0-5); WHITE CELLS - URINE 0-5 /hpf (0-5)
[2017-08-28 15:31] LABS: BACTERIA FEW /hpf (NONE SEEN)
[2017-08-28 15:54] LABS: ALBUMIN 3.5 g/dL (3.4-5.0); ALKALINE PHOSPHATASE 46 U/L (46-116); ALT (SGPT) 17 U/L (10-68); BILIRUBIN - TOTAL 0.36 mg/dL (0.2-1.3); CALC OSMOLALITY 279 mosm/kg (275-300); CARBON DIOXIDE 30.3 mmol/L (21.0-32.0); CHLORIDE - SERUM 103 mmol/L (98-107); CREATININE - SERUM 0.8 mg/dL (0.6-1.3); GLUCOSE 109 mg/dL (74-106); POTASSIUM - SERUM 3.7 mmol/L (3.5-5.1); PROTEIN - SERUM 6.9 g/dL (6.4-8.2); SODIUM 140 mmol/L (136-145); UREA NITROGEN 13 mg/dL (7-18); eGFR NON AFRICAN AMERICAN 75 mL/min (90-120)
[2017-08-28 15:56] LABS: UDS - AMPHET NEGATIVE QUAL (NEGATIVE); UDS - BARB NEGATIVE QUAL (NEGATIVE); UDS - BENZO POSITIVE QUAL (NEGATIVE); UDS - COCAINE NEGATIVE QUAL (NEGATIVE); UDS - OPIATE NEGATIVE QUAL (NEGATIVE); UDS - PCP NEGATIVE QUAL (NEGATIVE); UDS - THC NEGATIVE QUAL (NEGATIVE)
== END 2017-08-28 21:41 | disposition short-term general hospital (02) ==
LOC: D.ER 14:14
PROVIDERS: Emergency Medicine; Nurse Practitioner Family
DX: R45.851 Suicidal ideations (principal); Z86.59 Personal history of other mental and behavioral disorders; F41.9 Anxiety disorder, unspecified

== ENCOUNTER 2017-09-14 18:57 | Emergency (ER) | payer MEDICARE ==
[2017-08-25 14:57] VITALS: BMI 22.3
== END 2017-09-14 20:56 | disposition home or self-care (01) ==
LOC: D.ER 18:57
DX: F43.22 Adjustment disorder with anxiety (principal); Z86.59 Personal history of other mental and behavioral disorders

== ENCOUNTER 2017-09-26 14:22 | Emergency (ER) | payer MEDICARE ==
[~2017-09-26] VITALS: Ht 160 cm; Wt 61.4 kg
[2017-09-26 14:49] VITALS: BP 128/68; Ht 160 cm; Wt 61.4 kg
== END 2017-09-26 16:05 | disposition home or self-care (01) ==
LOC: D.ER 14:22
DX: M54.9 Dorsalgia, unspecified (principal)

== ENCOUNTER 2017-10-11 16:09 | Emergency (ER) | payer MEDICARE ==
[~2017-10-11] VITALS: Ht 160 cm; Wt 60.8 kg
[2017-10-11 16:17] VITALS: Ht 160 cm; Wt 60.8 kg
[2017-10-11 18:42] VITALS: BP 103/66
== END 2017-10-11 18:52 | disposition home or self-care (01) ==
LOC: D.ER 16:09
DX: M54.16 Radiculopathy, lumbar region (principal); M54.5 Low back pain

== ENCOUNTER 2017-10-13 19:14 | Emergency (ER) | payer MEDICARE ==
[~2017-10-13] VITALS: Ht 160 cm; Wt 61.4 kg
[2017-10-13 19:28] VITALS: BP 130/71; Ht 160 cm; Wt 61.4 kg
== END 2017-10-14 00:05 | disposition left against medical advice (07) ==
LOC: D.ER 19:14
DX: M54.16 Radiculopathy, lumbar region (principal); M54.5 Low back pain

== ENCOUNTER 2017-10-24 19:47 | Emergency (ER) | payer MEDICARE ==
[~2017-10-24] VITALS: Ht 160 cm; Wt 63.2 kg
[2017-10-24 19:58] VITALS: BP 147/76; Ht 160 cm; Wt 63.2 kg
[2017-10-24 20:41] LABS: BASOPHILS 0.2 % (0-2); EOSINOPHILS 1.3 % (0-7); HEMATOCRIT 42.8 % (36.0-48.0); HEMOGLOBIN 13.5 g/dL (12-16); IMMATURE GRANULOCYTES 0.3 % (0-5); LYMPHOCYTES 20.9 % (15-50); MCH 28.1 pg (26.0-34.0); MCHC 31.5 g/dL (31.0-37.0); MEAN PLATELET VOLUME 9.5 fL (7.4-10.4); NEUTROPHILS 69.3 % (40-80); PLATELET COUNT 191 10x3/uL (130-400); RBC 4.81 10x6/uL (4.00-5.40); RDW 14.5 % (11.5-14.5); WBC 8.7 10x3/uL (4.8-10.8)
[2017-10-24 21:04] LABS: ALBUMIN 3.6 g/dL (3.4-5.0); ALKALINE PHOSPHATASE 61 U/L (46-116); ALT (SGPT) 18 U/L (10-68); BILIRUBIN - TOTAL 0.34 mg/dL (0.2-1.3); CALC OSMOLALITY 282 mosm/kg (275-300); CALCIUM 8.9 mg/dL (8.5-10.1); CARBON DIOXIDE 31.6 mmol/L (21.0-32.0); CHLORIDE - SERUM 104 mmol/L (98-107); CREATININE - SERUM 0.6 mg/dL (0.6-1.3); GLUCOSE 96 mg/dL (74-106); POTASSIUM - SERUM 3.6 mmol/L (3.5-5.1); PROTEIN - SERUM 7.3 g/dL (6.4-8.2); SODIUM 142 mmol/L (136-145); UREA NITROGEN 12 mg/dL (7-18); eGFR NON AFRICAN AMERICAN > 90 mL/min (90-120)
== END 2017-10-24 22:30 | disposition left against medical advice (07) ==
LOC: D.ER 19:47
PROVIDERS: Family Medicine
DX: M79.606 Pain in leg, unspecified (principal)

== ENCOUNTER 2017-10-31 20:55 | Emergency (ER) | payer MEDICARE ==
[~2017-10-31] VITALS: Ht 160 cm; Wt 63.6 kg
[2017-10-31 21:02] VITALS: Ht 160 cm; Wt 63.6 kg
[2017-10-31 21:51] LABS: UDS - AMPHET NEGATIVE QUAL (NEGATIVE); UDS - BARB NEGATIVE QUAL (NEGATIVE); UDS - BENZO NEGATIVE QUAL (NEGATIVE); UDS - COCAINE NEGATIVE QUAL (NEGATIVE); UDS - OPIATE NEGATIVE QUAL (NEGATIVE); UDS - PCP NEGATIVE QUAL (NEGATIVE); UDS - THC NEGATIVE QUAL (NEGATIVE)
[2017-10-31 21:53] LABS: APPEARANCE CLEAR (CLEAR); BILIRUBIN NEGATIVE (NEGATIVE); COLOR YELLOW (YELLOW); GLUCOSE NEGATIVE (NEGATIVE); KETONE NEGATIVE (NEGATIVE); NITRITE NEGATIVE (NEGATIVE); PROTEIN NEGATIVE (NEGATIVE); SPECIFIC GRAVITY 1.025 (1.005-1.020); UROBILINOGEN NORMAL (NORMAL)
[2017-10-31 21:54] LABS: BACTERIA MODERATE /hpf (NONE SEEN); EPITHELIAL CELLS 0-5 /hpf (0-5); RED CELLS - URINE OCC /hpf (0-5)
[2017-10-31 21:55] LABS: BASOPHILS 0.3 % (0-2); EOSINOPHILS 2.3 % (0-7); HEMATOCRIT 39.4 % (36.0-48.0); HEMOGLOBIN 12.5 g/dL (12-16); IMMATURE GRANULOCYTES 0.3 % (0-5); LYMPHOCYTES 28.2 % (15-50); MCH 28.2 pg (26.0-34.0); MCHC 31.7 g/dL (31.0-37.0); MCV 88.7 fL (80.0-100.0); MEAN PLATELET VOLUME 9.9 fL (7.4-10.4); MONOCYTES 8.7 % (2-11); NEUTROPHILS 60.2 % (40-80); PLATELET COUNT 186 10x3/uL (130-400); RBC 4.44 10x6/uL (4.00-5.40); RDW 13.8 % (11.5-14.5); WBC 7.1 10x3/uL (4.8-10.8)
[2017-10-31 22:11] LABS: CALC OSMOLALITY 279 mosm/kg (275-300); CALCIUM 8.7 mg/dL (8.5-10.1); CARBON DIOXIDE 30.1 mmol/L (21.0-32.0); CHLORIDE - SERUM 105 mmol/L (98-107); CREATININE - SERUM 0.7 mg/dL (0.6-1.3); GLUCOSE 111 mg/dL (74-106); POTASSIUM - SERUM 3.4 mmol/L (3.5-5.1); SODIUM 139 mmol/L (136-145); THYROID STIMULATING HORMONE 2.16 uIU/mL (0.36-3.74); UREA NITROGEN 14 mg/dL (7-18); eGFR NON AFRICAN AMERICAN 87 mL/min (90-120)
[2017-10-31] MEDS ORDERED: TORADOL10 MG PO (22:36)
[2017-10-31] MEDS ORDERED: ZOFRAN ODT4 MG/UDTAB PO (22:36)
[2017-11-01 01:16] VITALS: BP 145/72
== END 2017-10-31 22:51 | disposition home or self-care (01) ==
LOC: D.ER 20:55
PROVIDERS: Family Medicine
DX: M25.551 Pain in right hip (principal); F41.9 Anxiety disorder, unspecified; F32.9 Major depressive disorder, single episode, unspecified; I10 Essential (primary) hypertension

== ENCOUNTER 2017-11-16 17:39 | Emergency (ER) | payer MEDICARE ==
[~2017-11-16] VITALS: Ht 160 cm; Wt 65.9 kg
[~2017-11-16 17:39] MED LIST changes: +TORADOL10 MG PO; +ZOFRAN ODT4 MG/UDTAB PO
[2017-11-16 17:44] VITALS: Ht 160 cm; Wt 65.9 kg
[2017-11-16] MEDS ORDERED: HYDROCODON-ACE1 EAC7 PO (17:46)
[2017-11-16 18:21] LABS: BASOPHILS 0.3 % (0-2); EOSINOPHILS 1.7 % (0-7); HEMATOCRIT 42.8 % (36.0-48.0); HEMOGLOBIN 13.6 g/dL (12-16); IMMATURE GRANULOCYTES 0.1 % (0-5); LYMPHOCYTES 28.3 % (15-50); MCHC 31.8 g/dL (31.0-37.0); MCV 88.1 fL (80.0-100.0); MEAN PLATELET VOLUME 10.1 fL (7.4-10.4); MONOCYTES 7.3 % (2-11); NEUTROPHILS 62.3 % (40-80); PLATELET COUNT 200 10x3/uL (130-400); RBC 4.86 10x6/uL (4.00-5.40); RDW 13.7 % (11.5-14.5); WBC 7.8 10x3/uL (4.8-10.8)
[2017-11-16 18:28] LABS: UDS - AMPHET NEGATIVE QUAL (NEGATIVE); UDS - BARB NEGATIVE QUAL (NEGATIVE); UDS - BENZO POSITIVE QUAL (NEGATIVE); UDS - COCAINE NEGATIVE QUAL (NEGATIVE); UDS - OPIATE NEGATIVE QUAL (NEGATIVE); UDS - PCP NEGATIVE QUAL (NEGATIVE); UDS - THC NEGATIVE QUAL (NEGATIVE)
[2017-11-16 18:33] LABS: APPEARANCE HAZY (CLEAR); BILIRUBIN NEGATIVE (NEGATIVE); COLOR DK YELLOW (YELLOW); GLUCOSE NEGATIVE (NEGATIVE); KETONE NEGATIVE (NEGATIVE); NITRITE NEGATIVE (NEGATIVE); PROTEIN NEGATIVE (NEGATIVE); SPECIFIC GRAVITY 1.025 (1.005-1.020); UROBILINOGEN NORMAL (NORMAL)
[2017-11-16 18:36] LABS: BACTERIA MODERATE /hpf (NONE SEEN); MUCUS >1+ /lpf (NONE SEEN); RED CELLS - URINE OCC /hpf (0-5)
[2017-11-16 18:45] LABS: ALBUMIN 3.6 g/dL (3.4-5.0); ALKALINE PHOSPHATASE 59 U/L (46-116); ALT (SGPT) 19 U/L (10-68); BILIRUBIN - TOTAL 0.46 mg/dL (0.2-1.3); CALC OSMOLALITY 279 mosm/kg (275-300); CALCIUM 8.7 mg/dL (8.5-10.1); CARBON DIOXIDE 31.9 mmol/L (21.0-32.0); CHLORIDE - SERUM 104 mmol/L (98-107); CREATININE - SERUM 0.7 mg/dL (0.6-1.3); GLUCOSE 101 mg/dL (74-106); POTASSIUM - SERUM 3.4 mmol/L (3.5-5.1); PROTEIN - SERUM 7.2 g/dL (6.4-8.2); SODIUM 141 mmol/L (136-145); UREA NITROGEN 11 mg/dL (7-18); eGFR NON AFRICAN AMERICAN 87 mL/min (90-120)
[2017-11-17 00:06] VITALS: BP 138/77
== END 2017-11-17 00:32 ==
LOC: D.ER 17:39
PROVIDERS: Emergency Medicine
DX: R45.851 Suicidal ideations (principal); Z76.5 Malingerer [conscious simulation]; R46.89 Other symptoms and signs involving appearance and behavior; I10 Essential (primary) hypertension; K21.9 Gastro-esophageal reflux disease without esophagitis

== ENCOUNTER 2017-11-24 17:31 | Emergency (ER) | payer MEDICARE ==
[~2017-11-24] VITALS: Ht 160 cm; Wt 65.9 kg
[~2017-11-24 17:31] MED LIST changes: +HYDROCODON-ACE1 EAC7 PO
[2017-11-24 17:47] VITALS: BP 143/69; Ht 160 cm; Wt 65.9 kg
[2017-11-24 18:21] LABS: BASOPHILS 0.3 % (0-2); EOSINOPHILS 2.3 % (0-7); HEMATOCRIT 39.2 % (36.0-48.0); HEMOGLOBIN 12.4 g/dL (12-16); IMMATURE GRANULOCYTES 0.3 % (0-5); LYMPHOCYTES 28.5 % (15-50); MCH 27.6 pg (26.0-34.0); MCHC 31.6 g/dL (31.0-37.0); MCV 87.3 fL (80.0-100.0); MONOCYTES 9.6 % (2-11); PLATELET COUNT 186 10x3/uL (130-400); RBC 4.49 10x6/uL (4.00-5.40); RDW 13.6 % (11.5-14.5); WBC 7.9 10x3/uL (4.8-10.8)
[2017-11-24 18:35] LABS: ALBUMIN 3.3 g/dL (3.4-5.0); ALKALINE PHOSPHATASE 59 U/L (46-116); ALT (SGPT) 16 U/L (10-68); BILIRUBIN - TOTAL 0.38 mg/dL (0.2-1.3); CALC OSMOLALITY 277 mosm/kg (275-300); CALCIUM 8.5 mg/dL (8.5-10.1); CARBON DIOXIDE 32.1 mmol/L (21.0-32.0); CHLORIDE - SERUM 103 mmol/L (98-107); CREATININE - SERUM 0.6 mg/dL (0.6-1.3); GLUCOSE 100 mg/dL (74-106); POTASSIUM - SERUM 3.9 mmol/L (3.5-5.1); PROTEIN - SERUM 6.7 g/dL (6.4-8.2); SODIUM 140 mmol/L (136-145); UREA NITROGEN 11 mg/dL (7-18); eGFR NON AFRICAN AMERICAN > 90 mL/min (90-120)
[2017-11-24 19:34] LABS: AMYLASE - SERUM 25 U/L (25-115); LIPASE 106 U/L (73-393)
[2017-11-24 19:37] LABS: APPEARANCE CLEAR (CLEAR); BILIRUBIN NEGATIVE (NEGATIVE); COLOR YELLOW (YELLOW); GLUCOSE NEGATIVE (NEGATIVE); KETONE NEGATIVE (NEGATIVE); NITRITE NEGATIVE (NEGATIVE); PROTEIN NEGATIVE (NEGATIVE); SPECIFIC GRAVITY 1.015 (1.005-1.020); UROBILINOGEN NORMAL (NORMAL)
[2017-11-24 19:38] LABS: BACTERIA MANY /hpf (NONE SEEN); RED CELLS - URINE 0-5 /hpf (0-5)
[2017-11-24] MEDS ORDERED: MACROBID100 MG PO (21:09)
== END 2017-11-24 21:17 | disposition left against medical advice (07) ==
LOC: D.ER 17:31
PROVIDERS: Family Medicine
DX: R10.9 Unspecified abdominal pain (principal); N39.0 Urinary tract infection, site not specified; I10 Essential (primary) hypertension; K21.9 Gastro-esophageal reflux disease without esophagitis

== ENCOUNTER 2017-12-11 18:05 | Emergency (ER) | payer MEDICARE ==
[~2017-12-11] VITALS: Ht 160 cm; Wt 63.6 kg
[~2017-12-11 18:05] MED LIST changes: +MACROBID100 MG PO
[2017-12-11 18:28] VITALS: Ht 160 cm; Wt 63.6 kg
[2017-12-11 19:27] LABS: APPEARANCE CLEAR (CLEAR); BILIRUBIN NEGATIVE (NEGATIVE); COLOR YELLOW (YELLOW); GLUCOSE NEGATIVE (NEGATIVE); KETONE NEGATIVE (NEGATIVE); NITRITE NEGATIVE (NEGATIVE); PROTEIN NEGATIVE (NEGATIVE); SPECIFIC GRAVITY 1.015 (1.005-1.020); UROBILINOGEN NORMAL (NORMAL)
[2017-12-11 20:47] LABS: BASOPHILS 0.1 % (0-2); EOSINOPHILS 1.9 % (0-7); HEMATOCRIT 42.1 % (36.0-48.0); HEMOGLOBIN 13.3 g/dL (12-16); IMMATURE GRANULOCYTES 0.1 % (0-5); LYMPHOCYTES 30.1 % (15-50); MCH 27.7 pg (26.0-34.0); MCHC 31.6 g/dL (31.0-37.0); MCV 87.7 fL (80.0-100.0); MEAN PLATELET VOLUME 9.8 fL (7.4-10.4); MONOCYTES 9.1 % (2-11); NEUTROPHILS 58.7 % (40-80); PLATELET COUNT 185 10x3/uL (130-400); RDW 13.2 % (11.5-14.5); WBC 7.5 10x3/uL (4.8-10.8)
[2017-12-11 21:11] LABS: ALBUMIN 3.5 g/dL (3.4-5.0); ALKALINE PHOSPHATASE 56 U/L (46-116); ALT (SGPT) 19 U/L (10-68); AMYLASE - SERUM 27 U/L (25-115); BILIRUBIN - TOTAL 0.22 mg/dL (0.2-1.3); CALC OSMOLALITY 279 mosm/kg (275-300); CALCIUM 8.5 mg/dL (8.5-10.1); CARBON DIOXIDE 33.1 mmol/L (21.0-32.0); CHLORIDE - SERUM 104 mmol/L (98-107); CREATININE - SERUM 0.6 mg/dL (0.6-1.3); GLUCOSE 94 mg/dL (74-106); LIPASE 112 U/L (73-393); POTASSIUM - SERUM 3.9 mmol/L (3.5-5.1); SODIUM 141 mmol/L (136-145); UREA NITROGEN 9 mg/dL (7-18); eGFR NON AFRICAN AMERICAN > 90 mL/min (90-120)
[2017-12-11 21:12] LABS: TROPONIN-I < 0.017 ng/mL (0.000-0.060)
[2017-12-11 22:42] VITALS: BP 122/58
== END 2017-12-11 22:42 | disposition home or self-care (01) ==
LOC: D.ER 18:05
PROVIDERS: Family Medicine
DX: K57.90 Diverticulosis of intestine, part unspecified, without perforation or abscess without bleeding (principal); I10 Essential (primary) hypertension; K21.9 Gastro-esophageal reflux disease without esophagitis

== ENCOUNTER 2017-12-21 14:29 | Emergency (ER) | payer MEDICARE ==
[~2017-12-21] VITALS: Ht 160 cm; Wt 63.6 kg
[2017-12-21 15:01] VITALS: BP 138/75; Ht 160 cm; Wt 63.6 kg
[2017-12-21 15:30] LABS: BASOPHILS 0.5 % (0-2); EOSINOPHILS 2.9 % (0-7); HEMATOCRIT 42.8 % (36.0-48.0); HEMOGLOBIN 13.4 g/dL (12-16); IMMATURE GRANULOCYTES 0.3 % (0-5); LYMPHOCYTES 26.4 % (15-50); MCH 27.7 pg (26.0-34.0); MCHC 31.3 g/dL (31.0-37.0); MCV 88.6 fL (80.0-100.0); MONOCYTES 7.3 % (2-11); NEUTROPHILS 62.6 % (40-80); PLATELET COUNT 200 10x3/uL (130-400); RBC 4.83 10x6/uL (4.00-5.40); RDW 13.2 % (11.5-14.5); WBC 6.3 10x3/uL (4.8-10.8)
[2017-12-21 15:46] LABS: ALBUMIN 3.5 g/dL (3.4-5.0); ALKALINE PHOSPHATASE 53 U/L (46-116); ALT (SGPT) 20 U/L (10-68); BILIRUBIN - TOTAL 0.29 mg/dL (0.2-1.3); CALC OSMOLALITY 277 mosm/kg (275-300); CALCIUM 8.5 mg/dL (8.5-10.1); CHLORIDE - SERUM 105 mmol/L (98-107); CREATININE - SERUM 0.8 mg/dL (0.6-1.3); GLUCOSE 106 mg/dL (74-106); POTASSIUM - SERUM 3.9 mmol/L (3.5-5.1); SODIUM 140 mmol/L (136-145); UREA NITROGEN 9 mg/dL (7-18); eGFR NON AFRICAN AMERICAN 75 mL/min (90-120)
[2017-12-21 16:00] LABS: APPEARANCE CLEAR (CLEAR); BILIRUBIN NEGATIVE (NEGATIVE); COLOR YELLOW (YELLOW); GLUCOSE NEGATIVE (NEGATIVE); KETONE NEGATIVE (NEGATIVE); NITRITE NEGATIVE (NEGATIVE); PROTEIN NEGATIVE (NEGATIVE); SPECIFIC GRAVITY 1.015 (1.005-1.020); UROBILINOGEN NORMAL (NORMAL)
[2017-12-21 16:01] LABS: BACTERIA FEW /hpf (NONE SEEN)
[2017-12-21] MEDS ORDERED: CIPRO500 MG PO (17:36)
== END 2017-12-21 18:07 | disposition left against medical advice (07) ==
LOC: D.ER 14:29
PROVIDERS: Emergency Medicine
DX: N39.0 Urinary tract infection, site not specified (principal); R19.7 Diarrhea, unspecified

== ENCOUNTER 2018-01-04 17:28 | Inpatient (IN) | payer MEDICARE ==
[~2018-01-04] VITALS: Ht 160 cm; Wt 64.0 kg
--- NOTE | ~2018-01-04 | PSY ---
PATIENT NAME:ANTONIO IGLESAIS MEDICAL RECORD: [id number] : 47 LOCATION:[facility] ADMISSION DATE: 01/04/18 ACCOUNT: [id number] PSYCHIATRIC EVALUATION DATE OF EVALUATION: 01/05/18 IDENTIFYING DATA: The patient is 72 years old and known to me from previous clinical contact. She is admitted to the hospital on a voluntary basis. CHIEF COMPLAINT: Suicidal thoughts. HISTORY OF PRESENT ILLNESS: The patient has presented herself to the Emergency Room expressing a high degree of distress and endorsing numerous neurovegetative depressive symptoms. She made suicidal statements that are documented by multiple persons in the ER and now is saying that she feels much better. She says she is not depressed, but when asked about individual depressive symptoms, she endorses some. She does have a history of depression. She has a long history of chaotic dysfunctional interpersonal relationships and the same problems are going on with her daughter and her son, and other difficulties. PAST MEDICAL HISTORY: Significant for chronic low back pain, hypertension, and gastritis. PAST PSYCHIATRIC HISTORY: Significant for multiple previous psychiatric hospitalizations. FAMILY HISTORY: Significant for substance abuse and depression. SOCIAL HISTORY: The patient is . Her about 6 years ago. She has many passive dependent traits and apparently he took care of her and she has had ongoing problem since his . She has a daughter who has been in skilled nursing and a son who also . ALLERGIES: INCLUDE ERYTHROMYCIN, MORPHINE, AND TRAMADOL. CURRENT MEDICATIONS: Please see the admissions MAR. MENTAL STATUS EXAMINATION: The patient is awake; alert; and oriented to person, place, and somewhat to time and situation. Her mood is anxious. Her affect is constricted. Thought processes are circumstantial. Memory, concentration, and abstraction abilities are moderately impaired and she denies any active intent to harm herself or others as well as overt psychotic symptoms. ASSETS: Supportive family members. LIABILITIES: Limited insight. DIAGNOSTIC IMPRESSION: AXIS I: Major depression, recurrent and severe. AXIS II: Cluster B personality traits along with cluster C personality traits. AXIS III: Hypertension and chronic low back pain. AXIS IV: Moderate. AXIS V: Global assessment of functioning is 40. PLAN: At this time, the patient is admitted to the hospital secondary to depressive symptoms with suicidal thoughts. She will be comprehensively evaluated from both medical, psychological, and social standpoint. She will be treated with both mood stabilizing and memory enhancing medications as deemed appropriate. Her long-term prognosis is guarded. TRANSINT:[id number] Voice Confirmation ID: [id number] DOCUMENT ID: [id number] CAILIN GUEVARA MD at 1132 CC: [id number] DICTATION DATE: 01/05/18 1444 CHIEF WARDEN: 01/05/18 1508 ADM IN [place] [id number] [place] [address]
--- NOTE | ~2018-01-04 | PN ---
PATIENT:ANTONIO IGLESIAS MEDICAL RECORD: [id number] LOCATION:[facility]112 ADMISSION DATE: 01/04/18 PROGRESS NOTE DATE OF SERVICE: 01/06/2018 SUBJECTIVE: The patient's case was discussed with staff. She has no new complaint. OBJECTIVE: The patient has a near-euthymic mood and has no suicidal thoughts. She is generally tolerating her antidepressant medication well. ASSESSMENT: No change in diagnoses. PLAN: The patient wants to go home. She has pretty limited insight about her situation. I think that she would benefit from ongoing stay here, but if she still wants to go tomorrow, I will allow it. Right now, it is only a little over a day since she was in the Emergency Room expressing suicidal thoughts. I am simply not comfortable letting her go today. I will let her go tomorrow if she wants and in fact, I suspect that is a virtual certainty that she will want to leave, but if her behaviors are appropriate and there are no observed behaviors that are of concern and she denies being suicidal, I will allow it tomorrow. TRANSINT:[id number] Voice Confirmation ID: [id number] DOCUMENT ID: [id number] CAILIN GUEVARA MD at 1628 CC: [id number] DICTATION DATE: 01/06/18 1505 SKIVER COUNTER: 01/06/18 1518 DIS IN 01/07/18 [facility] [address] [place] [address]
[~2018-01-04 17:28] MED LIST changes: +CIPRO500 MG PO
[2018-01-04 18:26] LABS: BASOPHILS 0.3 % (0-2); EOSINOPHILS 2.1 % (0-7); HEMATOCRIT 40.4 % (36.0-48.0); HEMOGLOBIN 13.1 g/dL (12-16); IMMATURE GRANULOCYTES 0.3 % (0-5); LYMPHOCYTES 28.1 % (15-50); MCHC 32.4 g/dL (31.0-37.0); MCV 86.3 fL (80.0-100.0); MEAN PLATELET VOLUME 10.1 fL (7.4-10.4); MONOCYTES 8.7 % (2-11); NEUTROPHILS 60.5 % (40-80); PLATELET COUNT 194 10x3/uL (130-400); RBC 4.68 10x6/uL (4.00-5.40); RDW 13.4 % (11.5-14.5); WBC 7.3 10x3/uL (4.8-10.8)
[2018-01-04 18:34] LABS: APPEARANCE CLEAR (CLEAR); COLOR YELLOW (YELLOW); PH 6.5 (5.0-6.0); SPECIFIC GRAVITY 1.005 (1.005-1.020)
[2018-01-04 18:35] LABS: BILIRUBIN NEGATIVE (NEGATIVE); GLUCOSE NEGATIVE (NEGATIVE); KETONE NEGATIVE (NEGATIVE); NITRITE NEGATIVE (NEGATIVE); PROTEIN NEGATIVE (NEGATIVE); UROBILINOGEN NORMAL (NORMAL)
[2018-01-04 18:46] LABS: ALBUMIN 3.5 g/dL (3.4-5.0); ALKALINE PHOSPHATASE 55 U/L (46-116); ALT (SGPT) 21 U/L (10-68); BILIRUBIN - TOTAL 0.36 mg/dL (0.2-1.3); CALC OSMOLALITY 282 mosm/kg (275-300); CALCIUM 8.2 mg/dL (8.5-10.1); CARBON DIOXIDE 28.4 mmol/L (21.0-32.0); CHLORIDE - SERUM 104 mmol/L (98-107); CREATININE - SERUM 0.6 mg/dL (0.6-1.3); GLUCOSE 96 mg/dL (74-106); POTASSIUM - SERUM 3.4 mmol/L (3.5-5.1); PROTEIN - SERUM 7.1 g/dL (6.4-8.2); SODIUM 143 mmol/L (136-145); UREA NITROGEN 8 mg/dL (7-18); eGFR NON AFRICAN AMERICAN > 90 mL/min (90-120)
[2018-01-04 18:47] LABS: UDS - AMPHET NEGATIVE QUAL (NEGATIVE); UDS - BARB NEGATIVE QUAL (NEGATIVE); UDS - BENZO NEGATIVE QUAL (NEGATIVE); UDS - COCAINE NEGATIVE QUAL (NEGATIVE); UDS - OPIATE NEGATIVE QUAL (NEGATIVE); UDS - PCP NEGATIVE QUAL (NEGATIVE); UDS - THC NEGATIVE QUAL (NEGATIVE)
[2018-01-04 20:00] VITALS: BP 138/80
[2018-01-04 22:41] VITALS: BMI 25.0
[2018-01-04] MEDS ORDERED: NORCO 7.5/325 T1 TA1 PO (23:06)
[2018-01-05 07:00] VITALS: BP 156/84
[2018-01-05 07:47] LABS: ALBUMIN 3.8 g/dL (3.4-5.0); ALKALINE PHOSPHATASE 64 U/L (46-116); ALT (SGPT) 22 U/L (10-68); BILIRUBIN - TOTAL 0.86 mg/dL (0.2-1.3); CALC OSMOLALITY 277 mosm/kg (275-300); CALCIUM 8.5 mg/dL (8.5-10.1); CARBON DIOXIDE 27.6 mmol/L (21.0-32.0); CHLORIDE - SERUM 103 mmol/L (98-107); CHOL - HDL RATIO 3.2 ratio (2.3-4.1); CHOLESTEROL, TOTAL 200 mg/dL (0-200); CREATININE - SERUM 0.7 mg/dL (0.6-1.3); GLUCOSE 125 mg/dL (74-106); HDL CHOLESTEROL 63 mg/dL (32-96); LDL CHOLESTEROL 120 mg/dL (0-100); LDL-HDL RATIO 1.9 ratio (1.5-3.5); POTASSIUM - SERUM 3.9 mmol/L (3.5-5.1); PROTEIN - SERUM 7.6 g/dL (6.4-8.2); SODIUM 140 mmol/L (136-145); THYROID STIMULATING HORMONE 2.18 uIU/mL (0.36-3.74); TRIGLYCERIDE 85 mg/dL (30-200); UREA NITROGEN 8 mg/dL (7-18); eGFR NON AFRICAN AMERICAN 87 mL/min (90-120)
[2018-01-05 08:51] VITALS: BMI 25.0
[2018-01-05 19:47] VITALS: BP 167/84
[2018-01-06 07:26] LABS: RAPID PLASMA REAGIN Non Reactive (Non Reactive)
[2018-01-06 08:00] VITALS: BP 154/73
[2018-01-06 09:19] LABS: VITAMIN D 25 HYDROXY 20.8 ng/mL (30.0-100.0)
[2018-01-06 10:10] VITALS: Ht 160 cm; Wt 64.0 kg
[2018-01-06 11:28] LABS: FOLATE (FOLIC ACID) - SERUM 18.5 ng/mL (>3.0)
[2018-01-06] MEDS ORDERED: CATAPRES0.1 MG PO (15:23)
[2018-01-06] MEDS ORDERED: VITAMIN D31000 UNI2 PO (15:24)
[2018-01-06] MEDS ORDERED: ANALPRAM HC 2.530 GM RC (15:24)
[2018-01-06 19:37] VITALS: BP 146/70
[2018-01-07 00:46] VITALS: BP 167/81
[2018-01-07 03:53] VITALS: BP 173/90
[2018-01-07 07:37] VITALS: BP 138/75
== END 2018-01-07 13:05 | disposition home or self-care (01) | DRG 885 ==
LOC: D.ER 17:28 → D.EDHOLD 20:06 → D.PSYCH 20:06 → D.EDHOLD 20:07 → D.PSYCH 20:08
PROVIDERS: Family Medicine; Psychiatry & Neurology Psychiatry
DX: F33.2 Major depressive disorder, recurrent severe without psychotic features (principal); R45.851 Suicidal ideations; I10 Essential (primary) hypertension; G89.29 Other chronic pain; M54.5 Low back pain; E55.9 Vitamin D deficiency, unspecified; K64.9 Unspecified hemorrhoids; R19.7 Diarrhea, unspecified; J30.9 Allergic rhinitis, unspecified; M19.90 Unspecified osteoarthritis, unspecified site; Z76.5 Malingerer [conscious simulation]; K29.70 Gastritis, unspecified, without bleeding; K57.90 Diverticulosis of intestine, part unspecified, without perforation or abscess without bleeding

== ENCOUNTER 2018-01-10 11:37 | Emergency (ER) | payer MEDICARE ==
[~2018-01-10] VITALS: Ht 160 cm; Wt 63.6 kg
--- NOTE | ~2018-01-10 | DS ---
PATIENT:ANTONIO IGLESIAS :47 MEDICAL RECORD: [id number] DISCHARGE SUMMARY ADMISSION DATE: 01/10/18 DISCHARGE DATE: 01/10/18 IDENTIFYING DATA: The patient is 72 years old and she is known to me from previous clinical contact. She was admitted to the hospital on this occasion because of suicidal thoughts. The patient presented to the Emergency Room expressing a high degree of distress and endorsing numerous neurovegetative depressive symptoms. She made suicidal statements that were documented by the staff in the Emergency Room. After she was admitted, she claims she felt better and that she was not depressed and then began back tracking on her statements. She has a long history of chaotic dysfunctional interpersonal functioning. HOSPITAL COURSE: The patient was admitted to the hospital and has a longstanding problem with major depression. She was insisting that she was not suicidal, was taking antidepressant medications and was not displaying severe depressive symptoms. There were circumstances that were situational around behaviors with her daughter and a conflict and that is likely what precipitated this presentation to the Emergency Room in this woman who does have depression, but also has a pretty significant dysfunctional personality disorder. She was subsequently transitioned out of the hospital at her request on the third day of hospitalization. DISCHARGE DIAGNOSES: AXIS I: Major depression, recurrent, severe. AXIS II: Cluster B personality traits along with cluster C personality traits. AXIS III: Hypertension, chronic low back pain. AXIS IV: Moderate. AXIS V: Global assessment of functioning 45. PLAN: At the time of discharge, the patient was in good behavioral control and showed no evidence of acute or direct dangerousness. She was to have follow up with her primary care physician and outpatient psychiatrist at the [facility]. TRANSINT:[id number] Voice Confirmation ID: [id number] DOCUMENT ID: [id number] CAILIN GUEVARA MD at 1440 CC: [id number] DICTATION DATE: 01/12/18 1324 CENTRAL SUPPLY ASSISTANT: 01/12/18 1337 DEP ER 01/10/18 [place] [id number] [place] [id number]
[~2018-01-10 11:37] MED LIST changes: +ANALPRAM HC 2.530 GM RC; +CATAPRES0.1 MG PO; +NORCO 7.5/325 T1 TA1 PO
[2018-01-10 12:00] VITALS: BP 128/74; Ht 160 cm; Wt 63.6 kg
== END 2018-01-10 13:35 | disposition left against medical advice (07) ==
LOC: D.ER 11:37
DX: I10 Essential (primary) hypertension (principal); K21.9 Gastro-esophageal reflux disease without esophagitis

== ENCOUNTER 2018-01-14 21:57 | Emergency (ER) | payer MEDICARE ==
[2018-01-10 12:00] VITALS: BMI 24.8
== END 2018-01-14 22:08 | disposition left against medical advice (07) ==
LOC: D.ER 21:57
DX: Z02.9 Encounter for administrative examinations, unspecified (principal)

== ENCOUNTER 2018-02-07 13:19 | Emergency (ER) | payer MEDICARE ==
[2018-02-07 13:24] VITALS: Ht 160 cm
[2018-02-07 13:59] LABS: BASOPHILS 0.4 % (0-2); EOSINOPHILS 3.3 % (0-7); HEMATOCRIT 40.2 % (36.0-48.0); HEMOGLOBIN 12.8 g/dL (12-16); IMMATURE GRANULOCYTES 0.2 % (0-5); LYMPHOCYTES 34.4 % (15-50); MCH 27.6 pg (26.0-34.0); MCHC 31.8 g/dL (31.0-37.0); MCV 86.8 fL (80.0-100.0); MEAN PLATELET VOLUME 9.8 fL (7.4-10.4); MONOCYTES 10.8 % (2-11); NEUTROPHILS 50.9 % (40-80); PLATELET COUNT 177 10x3/uL (130-400); RBC 4.63 10x6/uL (4.00-5.40); RDW 13.4 % (11.5-14.5); WBC 5.5 10x3/uL (4.8-10.8)
[2018-02-07 14:13] LABS: ALBUMIN 3.3 g/dL (3.4-5.0); ALKALINE PHOSPHATASE 52 U/L (46-116); ALT (SGPT) 21 U/L (10-68); BILIRUBIN - TOTAL 0.28 mg/dL (0.2-1.3); CALC OSMOLALITY 281 mosm/kg (275-300); CALCIUM 8.6 mg/dL (8.5-10.1); CARBON DIOXIDE 29.9 mmol/L (21.0-32.0); CHLORIDE - SERUM 104 mmol/L (98-107); CREATININE - SERUM 0.8 mg/dL (0.6-1.3); GLUCOSE 90 mg/dL (74-106); POTASSIUM - SERUM 3.5 mmol/L (3.5-5.1); PROTEIN - SERUM 6.6 g/dL (6.4-8.2); SODIUM 142 mmol/L (136-145); UREA NITROGEN 10 mg/dL (7-18); eGFR NON AFRICAN AMERICAN 75 mL/min (90-120)
[2018-02-07] MEDS ORDERED: CYCLOBENZAPRINE10 MG PO (14:33)
[2018-02-07 14:45] VITALS: BP 129/70
== END 2018-02-07 14:46 | disposition home or self-care (01) ==
LOC: D.ER 13:19
PROVIDERS: Family Medicine
DX: M79.605 Pain in left leg (principal); M79.604 Pain in right leg; R25.2 Cramp and spasm

== ENCOUNTER 2018-03-17 18:27 | Emergency (ER) | payer MEDICARE ==
[~2018-03-17] VITALS: Ht 160 cm; Wt 65.9 kg
[~2018-03-17 18:27] MED LIST changes: +CYCLOBENZAPRINE10 MG PO
[2018-03-17 18:39] VITALS: BP 132/64; Ht 160 cm; Wt 65.9 kg
== END 2018-03-17 18:50 | disposition left against medical advice (07) ==
LOC: D.ER 18:27
DX: R00.2 Palpitations (principal)

== ENCOUNTER 2018-03-21 14:12 | Emergency (ER) | payer MEDICARE ==
[~2018-03-21] VITALS: Ht 160 cm; Wt 65.9 kg
[2018-03-21 14:15] VITALS: BP 148/64; Ht 160 cm; Wt 65.9 kg
== END 2018-03-21 15:45 | disposition left against medical advice (07) ==
LOC: D.ER 14:12
DX: R10.9 Unspecified abdominal pain (principal)

== ENCOUNTER 2018-04-29 18:08 | Emergency (ER) | payer MEDICARE ==
[~2018-04-29] VITALS: Ht 160 cm; Wt 63.6 kg
[2018-04-29 18:24] VITALS: Ht 160 cm; Wt 63.6 kg
[2018-04-29] MEDS ORDERED: NORCO 5/325 TAB1 TAB PO (19:50)
[2018-04-29] MEDS ORDERED: NEURONTIN 300300 MG PO (19:50)
[2018-04-29 20:48] VITALS: BP 123/66
== END 2018-04-29 21:20 | disposition home or self-care (01) ==
LOC: D.ER 18:08
DX: M54.2 Cervicalgia (principal)

== ENCOUNTER 2018-05-03 12:01 | Emergency (ER) | payer MEDICARE ==
[~2018-05-03] VITALS: Ht 160 cm; Wt 68.2 kg
[~2018-05-03 12:01] MED LIST changes: +NEURONTIN 300300 MG PO; +NORCO 5/325 TAB1 TAB PO
[2018-05-03 12:15] VITALS: Ht 160 cm; Wt 68.2 kg
[2018-05-03] MEDS ORDERED: ZANAFLEX4 MG PO (13:22)
[2018-05-03 13:34] VITALS: BP 177/83
== END 2018-05-03 13:34 | disposition home or self-care (01) ==
LOC: D.ER 12:01
DX: M25.532 Pain in left wrist (principal); M25.512 Pain in left shoulder

== ENCOUNTER 2018-05-16 13:43 | Emergency (ER) | payer MEDICARE ==
[~2018-05-16] VITALS: Ht 160 cm; Wt 68.2 kg
[~2018-05-16 13:43] MED LIST changes: +ZANAFLEX4 MG PO
[2018-05-16 14:00] VITALS: Ht 160 cm; Wt 68.2 kg
[2018-05-16 17:00] VITALS: BP 156/79
== END 2018-05-16 17:00 | disposition home or self-care (01) ==
LOC: D.ER 13:43
DX: F41.9 Anxiety disorder, unspecified (principal); M25.512 Pain in left shoulder

== ENCOUNTER 2018-05-21 17:52 | Emergency (ER) | payer MEDICARE ==
[~2018-05-21] VITALS: Ht 160 cm; Wt 68.2 kg
[2018-05-21 17:56] VITALS: BP 158/78; Ht 160 cm; Wt 68.2 kg
== END 2018-05-21 20:14 | disposition home or self-care (01) ==
LOC: D.ER 17:52
DX: F41.9 Anxiety disorder, unspecified (principal); F43.20 Adjustment disorder, unspecified

== ENCOUNTER 2018-05-21 21:27 | Emergency (ER) | payer MEDICARE ==
[~2018-05-21] VITALS: Ht 160 cm; Wt 65.9 kg
[2018-05-21 21:39] VITALS: Ht 160 cm; Wt 65.9 kg
[2018-05-21 22:19] VITALS: BP 135/77
== END 2018-05-21 22:19 | disposition home or self-care (01) ==
LOC: D.ER 21:27
DX: F43.22 Adjustment disorder with anxiety (principal)

== ENCOUNTER 2018-06-24 12:22 | Inpatient (IN) | payer MEDICARE ==
[~2018-06-24] VITALS: Ht 160 cm; Wt 64.0 kg
--- NOTE | ~2018-06-24 | DS ---
PATIENT:ANTONIO IGLESIAS :47 MEDICAL RECORD: [id number] DISCHARGE SUMMARY ADMISSION DATE: 06/24/18 DISCHARGE DATE: 06/30/18 IDENTIFYING DATA: The patient is 72 years old and she is admitted to the hospital on a voluntary basis because of suicidal thoughts. The patient initially presented to the Emergency Room reporting suicidal thoughts. She was admitted here and subsequently began denying that she never made those statements even though they have been documented independently. She did report a lot of ongoing family conflict, primarily related to the relationship with her daughter. She says that she has not been taking her antidepressant medicine and has not been going to outpatient mental health treatment, but could not explain why. HOSPITAL COURSE: The patient was admitted to the hospital and comprehensively evaluated from both a medical, psychological, and social standpoint. She was treated with antidepressant and mood stabilizing medications and organized very quickly. She was subsequently transitioned home with outpatient followup that she insists that she will go to this time. DISCHARGE DIAGNOSES: AXIS I: Major depression, recurrent, severe without psychotic features. AXIS II: Cluster B personality traits and cluster C personality traits. AXIS III: Hypertension, chronic low back pain. AXIS IV: Moderate stressors. AXIS V: Global assessment of functioning is 45. PLAN: The patient was discharged from the hospital in good behavioral control without any evidence of acute or direct dangerousness to herself or others. There was no evidence of psychotic thinking. In fact her mood had completely changed and was entirely euthymic. This particular change indicates that much of her situation is related to her personality disorder and a situationally driven mood state that is not intrinsically associated with an endogenous mood disorder. Nevertheless, I think that she would benefit from antidepressant medication and I have referred her for outpatient therapy, which I think will be the most important factor in keeping her functional safe and out of the hospital. She had a role in formulating this outpatient treatment plan. She understands it and the relative risk and benefit of the medications and she agrees to follow these terms. If she does follow the recommendations and her outpatient treatment plan, I think her prognosis is reasonably good. If she does not, obviously that would indicate a much smaller likelihood of a good outcome. TRANSINT:[id number] Voice Confirmation ID: [id number] DOCUMENT ID: [id number] CAILIN UGEVARA MD CC: [id number] DICTATION DATE: 07/02/18 1541 CUFF SETTER LOCKSTITCH: 07/03/18 0142 DIS IN 06/30/18 [facility] [address] [place] [address]
[2018-06-24 13:02] LABS: BASOPHILS 0.2 % (0-2); EOSINOPHILS 0.8 % (0-7); HEMOGLOBIN 14.2 g/dL (12-16); IMMATURE GRANULOCYTES 0.3 % (0-5); LYMPHOCYTES 18.5 % (15-50); MCH 27.5 pg (26.0-34.0); MCHC 32.3 g/dL (31.0-37.0); MCV 85.1 fL (80.0-100.0); MONOCYTES 6.7 % (2-11); NEUTROPHILS 73.5 % (40-80); RBC 5.17 10x6/uL (4.00-5.40); RDW 14.5 % (11.5-14.5); WBC 11.4 10x3/uL (4.8-10.8)
[2018-06-24 13:14] LABS: PLATELET COUNT 229 10x3/uL (130-400)
[2018-06-24 13:19] LABS: ALBUMIN 3.9 g/dL (3.4-5.0); ALKALINE PHOSPHATASE 66 U/L (46-116); ALT (SGPT) 17 U/L (10-68); BILIRUBIN - TOTAL 0.39 mg/dL (0.2-1.3); CALC OSMOLALITY 279 mosm/kg (275-300); CARBON DIOXIDE 28.7 mmol/L (21.0-32.0); CHLORIDE - SERUM 100 mmol/L (98-107); CREATININE - SERUM 0.8 mg/dL (0.6-1.3); MAGNESIUM - SERUM 2.2 mg/dL (1.8-2.4); POTASSIUM - SERUM 3.8 mmol/L (3.5-5.1); PROTEIN - SERUM 8.1 g/dL (6.4-8.2); SODIUM 140 mmol/L (136-145); UREA NITROGEN 10 mg/dL (7-18); eGFR NON AFRICAN AMERICAN 75 mL/min (90-120)
[2018-06-24 13:20] LABS: GLUCOSE 139 mg/dL (74-106)
--- NOTE | 2018-06-24 13:30 | NUR ---
PT APPEARS ANXIOUS, IS IN THE HALLWAY WHILE I WAS PASSING MEDS TO ANOTHER PATIENT, ASKED TO SPEAK TO ME, I WENT INTO HER ROOM AND SHE WANTED TO KNOW WHAT WE WERE DOING WITH HER AND THE COURSE OF HER CARE WAS EXPLAINED TO HER, PT KEPT SHAKING HEAD AND STATING THAT "YOU ARE LEAVING ME BACK HERE TO ." PT ASSURED THAT WAS NOT THE CASE AND WE WOULD BE KEEPING HER INFORMED OF THE PROCESS WHEN THERE WERE EVENTS TO UPDATE.
[2018-06-24 13:58] LABS: APPEARANCE CLEAR (CLEAR); COLOR YELLOW (YELLOW)
[2018-06-24 13:59] LABS: BILIRUBIN NEGATIVE (NEGATIVE); GLUCOSE NEGATIVE (NEGATIVE); KETONE NEGATIVE (NEGATIVE); NITRITE NEGATIVE (NEGATIVE); PROTEIN NEGATIVE (NEGATIVE); SPECIFIC GRAVITY 1.015 (1.005-1.020); UROBILINOGEN NORMAL (NORMAL)
--- NOTE | 2018-06-24 14:00 | NUR ---
PT IS UP IN THE HALLWAY ASKING TO CALL HER DAUGHTER, STATING THE DAUGHTER "JUST LEFT ME HERE, SHE SAID SHE WOULD COME BACK BUT SHE JUST LEFT ME HERE." PT WAS SHOWN TO THE PHONE AND CALLED HER DAUGHTER, NOT SURE IF THERE WAS AN ANSWER, PT WENT BACK TO HER ROOM.
[2018-06-24 14:55] VITALS: BP 156/82
--- NOTE | 2018-06-24 15:00 | NUR ---
PT'S DAUGHTER IS AT THE NURSES STATION ASKING ABOUT THE PATIENT BEING PLACED AND ASKING ME TO GIVE THE PATIENT SOMETHING TO CALM HER DOWN. DAUGHTER INFORMED THAT I CAN NOT GIVE PATIENTS MEDS WITHOUT AN ORDER AND THAT WE WERE WAITING ON THE PATIENT TO BE MEDICALLY CLEARED SO THAT WE COULD START THE PLACEMENT PROCESS. THE DAUGHTER BECAME TEARFUL AND ASKED WHAT TO TELL HER MOTHER AND A FELLOW NURSE FAMILIAR WITH THE SITUATION WENT TO THE ROOM TO SPEAK WITH THE PATIENT REGARDING THE COURSE OF HER CARE.
[2018-06-24 15:03] LABS: UDS - AMPHET NEGATIVE QUAL (NEGATIVE); UDS - BARB NEGATIVE QUAL (NEGATIVE); UDS - BENZO NEGATIVE QUAL (NEGATIVE); UDS - COCAINE NEGATIVE QUAL (NEGATIVE); UDS - OPIATE NEGATIVE QUAL (NEGATIVE); UDS - PCP NEGATIVE QUAL (NEGATIVE); UDS - THC NEGATIVE QUAL (NEGATIVE)
--- NOTE | 2018-06-24 15:30 | NUR ---
CALLED [facility] FOR SCREENING ON THE PATIENT.
--- NOTE | 2018-06-24 16:00 | NUR ---
PT IS REQUESTING TO BE TRANSFERRED TO A DIFFERENT FACILITY AND THAT SHE DOES NOT WANT TO BE PLACED IN OUR [facility], CALLED ADMINISTRATION WHO IS ALREADY AWARE THAT THE PATIENT DOES NOT WANT TO BE PLACED IN OUR FACILITY. THEY WILL ADVISE.
--- NOTE | 2018-06-24 16:10 | NUR ---
PT IS SPEAKING WITH THE SUPERVISOR HAND SILVERING AT THIS TIME REGARDING PLACEMENT.
--- NOTE | 2018-06-24 16:50 | NUR ---
PATIENT INFORMATION FAXED TO [facility] BY OIL OPERATOR.
--- NOTE | 2018-06-24 16:56 | NUR ---
PATIENT AT NURSES DESK, ASKS "CAN YOU TELL ME WHAT IS GOING ON?" PT ASKED WHAT SHE WAS REFERRING TO, SHE STATES "MY PLACEMENT." PT INFORMED THAT HER INFORMATION HAD JUST BEEN FAXED AND THAT SOON I HEARD BACK FROM THEM I WOULD MOST CERTAINLY LET HER KNOW. HER REPLY WAS "WHY ARE YOU MISTREATING ME?" I TRIED TO EXPLAIN THAT I WAS NOT IN ANY WAY TRYING TO MISTREAT HER AND THAT I COULD NOT DO ANYTHING UNTIL THEY REVIEWED THE CHART AND CALLED BACK. SHE REPLIED "I AM GOING TO CALL MY LAWER TO GET ME OUT OF HERE." PT WALKED BACK TO ROOM. ADMINISTRATION NOTIFIED OF THIS ENCOUNTER.
--- NOTE | 2018-06-24 17:00 | NUR ---
PT IS AT THE NURSES DESK ASKING FOR ICE WATER WHICH WAS GIVEN TO THE PATIENT.
--- NOTE | 2018-06-24 18:05 | NUR ---
ACCOMPANIED ER PROVIDER TO ROOM, PT AGREES TO BE ADMITTED TO [facility] IN OUR FACILITY, WILL CALL FOR TRANSFER.
--- NOTE | 2018-06-24 18:15 | NUR ---
CALLED REPORT TO [facility] AND SPOKE WITH BOTH NURSES ON STAFF AND REPORTED THE PATIENT'S CONCERNS THAT SHE DID NOT WANT ANYONE TO BE MEAN TO HER LIKE THEY WERE LAST TIME. THEY UNDERSTOOD AND ASSURED ME THAT THE PATIENT WOULD BE TREATED WITH RESPECT. THIS WAS CONVEYED TO THE PATIENT WHO SEEMED TO BE PUT MORE AT EASE.
--- NOTE | 2018-06-24 19:00 | NUR ---
PT ADMITTED TO [facility] FROM [facility] ER. PT CAME INTO TO ER WITH SUICIDAL IDEATIONS. PT DENIES SI AT THIS TIME. PT IS ALERT AND ORIENTED X 4. PT IS FULL CODE. CODE WORD DINA. CALM AND COOPERTAIVE WITH ASSESSMENT AND SIGNING ALL CONSENTS. NO DENIES ANY PAIN OR DISTRESS AT THIS TIME.
[2018-06-24 20:11] VITALS: BP 166/80
[2018-06-24 21:02] VITALS: BP 166/80; BMI 25.0
--- NOTE | 2018-06-25 00:10 | NUR ---
B) Patient is alert and oriented to person, place, time and situation, calm and cooperative, needy at times, I) Administered scheduled medications as ordered, monitored for safety, contracts for safety R) Medication compliant, no S.I. P) Continue plan of care.
[2018-06-25 06:49] LABS: BASOPHILS 0.5 % (0-2); EOSINOPHILS 1.6 % (0-7); HEMATOCRIT 42.2 % (36.0-48.0); HEMOGLOBIN 13.2 g/dL (12-16); IMMATURE GRANULOCYTES 0.2 % (0-5); LYMPHOCYTES 30.5 % (15-50); MCH 26.7 pg (26.0-34.0); MCHC 31.3 g/dL (31.0-37.0); MCV 85.4 fL (80.0-100.0); MEAN PLATELET VOLUME 9.8 fL (7.4-10.4); MONOCYTES 9.1 % (2-11); NEUTROPHILS 58.1 % (40-80); PLATELET COUNT 199 10x3/uL (130-400); RBC 4.94 10x6/uL (4.00-5.40); RDW 14.5 % (11.5-14.5)
[2018-06-25 06:57] LABS: WBC 6.3 10x3/uL (4.8-10.8)
[2018-06-25 07:13] LABS: ALBUMIN 3.4 g/dL (3.4-5.0); ALKALINE PHOSPHATASE 59 U/L (46-116); ALT (SGPT) 14 U/L (10-68); BILIRUBIN - TOTAL 1.02 mg/dL (0.2-1.3); CALC OSMOLALITY 281 mosm/kg (275-300); CALCIUM 8.5 mg/dL (8.5-10.1); CARBON DIOXIDE 30.5 mmol/L (21.0-32.0); CHLORIDE - SERUM 103 mmol/L (98-107); CHOLESTEROL, TOTAL 161 mg/dL (0-200); CREATININE - SERUM 0.6 mg/dL (0.6-1.3); GLUCOSE 103 mg/dL (74-106); HDL CHOLESTEROL 54 mg/dL (32-96); LDL CHOLESTEROL 95 mg/dL (0-100); LDL-HDL RATIO 1.8 ratio (1.5-3.5); POTASSIUM - SERUM 3.8 mmol/L (3.5-5.1); SODIUM 142 mmol/L (136-145); THYROID STIMULATING HORMONE 2.12 uIU/mL (0.36-3.74); TRIGLYCERIDE 64 mg/dL (30-200); UREA NITROGEN 11 mg/dL (7-18); eGFR NON AFRICAN AMERICAN > 90 mL/min (90-120)
[2018-06-25 09:46] VITALS: BMI 25.0
--- NOTE | 2018-06-25 09:50 | NUR ---
TO ORDERS RECEIVED FOR IMMODIUM FROM DR. FARIAS.HAS HAD 4 LOOSE STOOLS THIS AM.
[2018-06-25 14:15] VITALS: Ht 160 cm; Wt 64.0 kg
--- NOTE | 2018-06-25 15:55 | NUR ---
GOOD RESPONSE TO IMMODIEN.IS ORIENTED X 3.DENIES THOUGHTS OF HARMING SELF .STATES " I GET LONELY AT HOME AND START THINKING WHAT DO I HAVE TO LIVE FOR".ALSO STATES"I DON'T TAKE MY MEDS LIKE I SHOULD".IS COMPLIANT WITH STAFF AND MEDS.TALKS WITH PEERS.WILL CONTINUE WITH PLAN OF CARE.MONITOR FOR CHANGES AND SAFETY.
--- NOTE | 2018-06-25 16:24 | NUR ---
asked pt if it was ok to speak with daughter and give her her code word. pt gave permission. reviewed pt's behavior and tx plan with daughter. also, reviewed visitation hours with her. daughter stated she would visit today. verbalized understanding of tx plan.
[2018-06-25 19:56] VITALS: BP 122/77; BP 125/85
--- NOTE | 2018-06-26 04:05 | NUR ---
B) patient is alert and oriented X 4, calm and cooperative, social with peers and staff, I) Administered scvheduled medications as ordered, monitored for safety, R) Mediation compliant, no S.I. this shift, follows unit milieu P) Continue plan of care.
[2018-06-26 06:15] LABS: VITAMIN D 25 HYDROXY 16.4 ng/mL (30.0-100.0)
--- NOTE | 2018-06-26 07:24 | NUR ---
B) The patient is sitting up in the hallway socializing with other patients, she has not mentioned feeling suicidal, she is reactive. Alert and oriented x3, ambulates independently. I) Provide prescribed meds. R) The patient is compliant with meds and she participates in groups when prompted. P) Continue POC.
[2018-06-26 07:29] LABS: RAPID PLASMA REAGIN Non Reactive (Non Reactive)
[2018-06-26 09:48] VITALS: BP 148/64
[2018-06-26 10:22] LABS: FOLATE (FOLIC ACID) - SERUM >20.0 ng/mL (>3.0)
[2018-06-26 10:37] VITALS: BP 148/64
[2018-06-26 11:01] LABS: APPEARANCE SL CLDY (CLEAR); BACTERIA MANY /hpf (NONE SEEN); BILIRUBIN NEGATIVE (NEGATIVE); COLOR YELLOW (YELLOW); GLUCOSE NEGATIVE (NEGATIVE); HYALINE CAST OCC /lpf (NONE SEEN); KETONE NEGATIVE (NEGATIVE); MUCUS <1+ /lpf (NONE SEEN); NITRITE NEGATIVE (NEGATIVE); PROTEIN TRACE mg/dL (NEGATIVE); RED CELLS - URINE 0-5 /hpf (0-5); SPECIFIC GRAVITY 1.015 (1.005-1.020); UROBILINOGEN NORMAL (NORMAL); WHITE CELLS - URINE 0-5 /hpf (0-5)
--- NOTE | 2018-06-26 13:49 | PSY ---
PATIENT NAME:ANTONIO IGLESIAS MEDICAL RECORD: [id number] : 47 LOCATION:[facility] Isaac1120 ADMISSION DATE: 06/24/18 ACCOUNT: [id number] PSYCHIATRIC EVALUATION DATE OF EVALUATION: 06/25/18 IDENTIFYING DATA: The patient is 72 years old and she is admitted to the hospital on a voluntary basis. CHIEF COMPLAINT: Suicidal thoughts. HISTORY OF PRESENT ILLNESS: The patient presented to the Emergency Room yesterday reporting suicidal thoughts. She subsequently has been denying those statements, but they were indeed made and have been documented independently. She reports a lot of ongoing family problems primarily related to her relationship with her daughter. She says that she has not been taking her antidepressant medicine and has not been going to outpatient mental health treatment, but cannot really explain why. PAST MEDICAL HISTORY: Significant for low back pain, hypertension, and gastritis. PAST PSYCHIATRIC HISTORY: Significant for multiple previous hospitalizations for suicidal thoughts or actions. FAMILY HISTORY: Significant for substance abuse and depression. ALLERGIES: INCLUDE ERYTHROMYCIN AND MORPHINE. CURRENT MEDICATIONS: Include Ativan, multiple vitamins, Celexa, Pepcid, Neurontin, and Catapres. SOCIAL HISTORY: The patient's about 6 years ago. She has been in a steady state of chaotic dysfunction since then. She has ongoing conflicts with her daughter who is struggling with an addiction issue and has been in and out of long term multiple times. She also has a son who has for under circumstances I am not familiar with. MENTAL STATUS EXAMINATION: The patient is awake, alert and oriented to person, place, time and situation. Her mood is depressed. Her affect is constricted. Thought processes are circumstantial. Her memory, concentration, and abstraction abilities are mildly impaired and she denies any thoughts of harming herself or others as well as psychotic symptoms. ASSETS: Supportive family members. LIABILITIES: Limited insight. DIAGNOSTIC IMPRESSION: AXIS I: Major depression, recurrent, severe without psychotic features. AXIS II: Cluster B personality traits along with cluster C personality traits. AXIS III: Hypertension, chronic low back pain. AXIS IV: Moderate stressors. AXIS V: Global assessment of functioning is 40. PLAN: At this time, the patient is admitted to the hospital secondary to presenting to the Emergency Room with suicidal thoughts. She will be comprehensively evaluated from both a medical, psychological, and social standpoint. She will be treated with mood stabilizing and memory enhancing medications as deemed appropriate. Her long-term prognosis is guarded. TRANSINT:[id number] Voice Confirmation ID: [id number] DOCUMENT ID: [id number] CAILIN GUEVARA MD at 1349 CC: [id number] DICTATION DATE: 06/25/18 1535 YARD SPOTTER: 06/25/18 1635 ADM IN [place] [id number] [place] [address]
[2018-06-26 20:15] VITALS: BP 145/64
--- NOTE | 2018-06-27 05:17 | NUR ---
B) Patient is alert and oriented X 4, calm and cooperative, needy at times, I) Administered scheduled medications as ordered, monitored for safety, R) Medication compliant, no S.I. this shift, P) Continue plan of care.
--- NOTE | 2018-06-27 07:25 | NUR ---
B) The patient is awake and alert, she is oriented x3, she denies depression this am. She is enjoying the company of the other female patients. I) Provide prescribed meds. R) The patient is compliant with meds and unit milieu. P) Continue POC.
[2018-06-27 08:12] VITALS: BP 139/74
--- NOTE | 2018-06-27 08:39 | PN ---
PATIENT:ANTONIO IGLESIAS MEDICAL RECORD: [id number] LOCATION:[facility] ADMISSION DATE: 06/24/18 PROGRESS NOTE DATE OF SERVICE: 06/26/2018 SUBJECTIVE: The patient's case was discussed with staff. She has no new complaint. OBJECTIVE: The patient denies intent to harm herself or others. She does tolerate her medicines well. ASSESSMENT: No change in diagnoses. PLAN: Current medicines and therapies have been reviewed. The patient denies that she would seek to harm herself or others. She has no real explanation as to what transpired. She is telling me again that she has not been taking her medicine consistently. I am going to augment her antidepressants with a low dose of BuSpar. TRANSINT:[id number] Voice Confirmation ID: [id number] DOCUMENT ID: [id number] CAILIN GUEVARA MD at 0839 CC: [id number] DICTATION DATE: 06/26/18 1525 CENTRIFUGAL SUPERVISOR: 06/26/18 2046 ADM IN [place] [id number] [place] [address]
--- NOTE | 2018-06-27 11:45 | NUR ---
Did take this patient along with four other patients for a walk down the hallway three times to get out of the day room and exercise. The patient tolerated the walk well.
[2018-06-27 19:55] VITALS: BP 126/57
--- NOTE | 2018-06-28 03:51 | NUR ---
B) Patient is alert and oriented to person, place, time,, and situation, calm and cooperative with care and assessment, I) Adninistered scheduled medications as ordered, PRN Imodium 2 mg PO given @ 21:19 for loose stools, R) Mediation compliant, resting quietly in her bed now, P) Continue plan of care.
--- NOTE | 2018-06-28 07:19 | NUR ---
B) The patient c/o h/a she says it goes into her neck, thinks it may be the bed. She rates it 6/10. She ambulates independently. I) Provide prescribed meds. R) The patient is compliant with unit milieu, but she is negative and has a lot of negative things to say. P) Continue POC.
--- NOTE | 2018-06-28 07:38 | NUR ---
The patient received Tylenol 325 mg PO for her h/a.
[2018-06-28 08:00] VITALS: BP 126/61
--- NOTE | 2018-06-28 11:00 | NUR ---
REPORT RECEIVED AND CARE ASSUMED. SITTING IN DAYROOM WATCHING A MOVIE,
--- NOTE | 2018-06-28 11:37 | PN ---
PATIENT:ANTONIO IGLESIAS MEDICAL RECORD: [id number] LOCATION:[facility] ADMISSION DATE: 06/24/18 PROGRESS NOTE DATE OF SERVICE: 06/27/2018 SUBJECTIVE: The patient's case was discussed with staff. She has no new complaint. OBJECTIVE: The patient denies intent to harm herself or others. She generally tolerates her medicines well. Eye contact is fair. ASSESSMENT: No change in diagnoses. PLAN: Current medicines and therapies have been reviewed. Long-term prognosis is guarded. She is not wanting to hurt herself at this time and that is encouraging. I anticipate she can be transitioned out of the hospital soon. TRANSINT:[id number] Voice Confirmation ID: [id number] DOCUMENT ID: [id number] CAILIN GUEVARA MD at 1137 CC: [id number] DICTATION DATE: 06/27/18 0840 OENOLOGIST: 06/27/18 0847 ADM IN [place] [id number] [place] [id number]
[2018-06-28 19:28] VITALS: BP 133/77; BP 142/67
--- NOTE | 2018-06-28 21:24 | NUR ---
PATIENT IS AAOX3, COMPLIANT WITH MEDS, NO ADVERSE REACTION NOTED, NO S/I, ABLE TO MAKE NEEDS KNOWN, DENIES ANY NEEDS AT THIS TIME, WILL FOLLOW POC
--- NOTE | 2018-06-29 07:57 | NUR ---
IMMODIUM 2 MG PO GIVEN PER REQUEST FOR LOOSE STOOLS.
--- NOTE | 2018-06-29 09:00 | NUR ---
RECEIVED IN HALLWAY WITH PEERS, AWAKE AND ALERT, CALM AND COOPERATIVE WITH CARE AND ASSESSMENT. PROVIDE PRESCRIBED MEDS. PATIENT IS COMPLIANT WITH TAKING MEDS. REDIRECT NEEDED. FALL PRECAUTIONS IN PLACE. WLL CONTINUE PLAN OF CARE.
--- NOTE | 2018-06-29 15:36 | NUR ---
SW MET WITH PT AND CONVERSATION WAS WITNESSED BY MHT DINERO. SW WENT OVER DISCHARGE PLANS AND DISCUSSED FOLLOW UP APPOINT WITH PCP, REFERRAL TO OUTPATIENT INTENSIVE THERAPY, AND SAFETY CONTRACT PT FILLED OUT. PT WAS ABLE TO IDENTIFY COPING SKILLS AND PEOPLE TO CONTACT IF SHE FEELS DEPRESSED OR HERSELF BECOMING SUICIDAL. PT VERBALIZED UNDERSTANDING OF CONVERSATION.
--- NOTE | 2018-06-29 15:58 | PN ---
PATIENT:ANTONIO IGLESIAS MEDICAL RECORD: [id number] LOCATION:[facility] ADMISSION DATE: 06/24/18 PROGRESS NOTE DATE OF SERVICE: 06/28/2018 SUBJECTIVE: The patient's case was discussed with staff. She has no new complaint. OBJECTIVE: The patient denies intent to harm herself or others. She does tolerate her medicines well. She has a mood that is near euthymic. ASSESSMENT: No change in diagnoses. PLAN: Current medicines have been reviewed and will be maintained. I am, however, going to increase the dose of the BuSpar slightly. TRANSINT:[id number] Voice Confirmation ID: [id number] DOCUMENT ID: [id number] CAILIN GUEVARA MD at 1558 CC: [id number] DICTATION DATE: 06/28/18 1141 DISPLAY MANAGER: 06/28/18 1159 ADM IN [place] [id number] [place] [address]
[2018-06-29] MEDS ORDERED: LEVAQUIN750 MG PO (16:18)
[2018-06-29] MEDS ORDERED: BUSPAR10 MG PO (16:18)
[2018-06-29] MEDS ORDERED: Vitamin D PO (16:19)
[2018-06-29] MEDS ORDERED: VITAMIN B-121000 MCG PO (16:19)
--- NOTE | 2018-06-29 17:10 | NUR ---
TYLENOL 325 MG PO GIVEN FOR LEVEL #8 BACK PAIN.
[2018-06-29 20:52] VITALS: BP 149/68
--- NOTE | 2018-06-29 21:49 | NUR ---
RECEIVED IN DAYROOM. SITTING IN CHAIR AND WATCHING TV. CALM AND COOPERATIVE WITH CARE AND ASSESSMENT. DENIES THOUGHTS OF SELF HARM. REDIRECT AND REORIENT NEEDED. GETTING READY FOR BED AT THIS TIME. CONTINUE PLAN OF CARE.
[2018-06-30 08:30] VITALS: BP 152/62
--- NOTE | 2018-06-30 09:00 | NUR ---
RECEIVED IN HALLWAY WITH PEERS. ALERT AND ORIENTED, CALM AND COOPERATIVE WITH CARE AND ASSESSMENT. PROVIDE PRESCRIBED MEDS. COMPLIANT WITH MEDS. FALL PRECAUTIONS MAINTAINED. WILL CONTINUE PLAN OF CARE.
--- NOTE | 2018-06-30 10:45 | NUR ---
DISCHARGED HOME VIA CAR WITH DAUGHTER. BELONGINGS GATHERED AND GIVEN TO PATIENT. LEFT HOSPITAL WITH NO VOICED NEEDS.
--- NOTE | 2018-06-30 12:58 | PN ---
PATIENT:ANTONIO IGLESIAS MEDICAL RECORD: [id number] LOCATION:[facility] ADMISSION DATE: 06/24/18 PROGRESS NOTE DATE OF SERVICE: 06/29/2018 SUBJECTIVE: The patient's case was discussed with staff. She has no new complaint. OBJECTIVE: The patient has a near euthymic mood. She denies intent to harm herself or others. She has a reasonable outpatient treatment plan arranged and she is willing to follow it. ASSESSMENT: Major depression. PLAN: The patient will be transitioned out of the hospital tomorrow. Her long-term prognosis is guarded. TRANSINT:[id number] Voice Confirmation ID: [id number] DOCUMENT ID: [id number] CAILIN GUEVARA MD at 1258 CC: [id number] DICTATION DATE: 06/29/18 1617 OCTAVE BOARD RACKER: 06/29/18 1850 ADM IN [place] [id number] [place] [id number]
== END 2018-06-30 10:45 | disposition home or self-care (01) | DRG 885 ==
LOC: D.ER 12:22 → D.EDHOLD 18:19 → D.PSYCH 18:19
PROVIDERS: Family Medicine; ADMIT Psychiatry & Neurology Psychiatry; ATTEND Psychiatry & Neurology Psychiatry
DX: F33.9 Major depressive disorder, recurrent, unspecified (principal); R45.851 Suicidal ideations; N39.0 Urinary tract infection, site not specified; I10 Essential (primary) hypertension; G89.29 Other chronic pain; M54.5 Low back pain; K58.0 Irritable bowel syndrome with diarrhea; E55.9 Vitamin D deficiency, unspecified; F41.9 Anxiety disorder, unspecified; G62.9 Polyneuropathy, unspecified

== ENCOUNTER 2019-01-06 14:43 | Emergency (ER) | payer MEDICARE ==
[~2019-01-06] VITALS: Ht 160 cm; Wt 65.5 kg
[~2019-01-06 14:43] MED LIST changes: +BUSPAR10 MG PO; +LEVAQUIN750 MG PO; +VITAMIN B-121000 MCG PO; +Vitamin D PO
[2019-01-06 14:47] VITALS: Ht 160 cm; Wt 65.5 kg
[2019-01-06 16:38] LABS: ALBUMIN 3.9 g/dL (3.4-5.0); ANION GAP 14.3 mmol/L (8-16); BILIRUBIN - TOTAL 0.48 mg/dL (0.2-1.3); CALCIUM 8.6 mg/dL (8.5-10.1); CARBON DIOXIDE 29.8 mmol/L (21.0-32.0); CREATININE - SERUM 0.8 mg/dL (0.6-1.3); POTASSIUM - SERUM 4.1 mmol/L (3.5-5.1); PROTEIN - SERUM 7.4 g/dL (6.4-8.2)
[2019-01-06 17:08] LABS: BASOPHILS 0.4 % (0-2); EOSINOPHILS 3.8 % (0-7); HEMATOCRIT 41.1 % (36.0-48.0); HEMOGLOBIN 13.2 g/dL (12-16); IMMATURE GRANULOCYTES 0.4 % (0-5); LYMPHOCYTES 29.1 % (15-50); MCH 27.2 pg (26.0-34.0); MCHC 32.1 g/dL (31.0-37.0); MCV 84.7 fL (80.0-100.0); MEAN PLATELET VOLUME 10.9 fL (7.4-10.4); MONOCYTES 10.4 % (2-11); NEUTROPHILS 55.9 % (40-80); PLATELET COUNT 187 10x3/uL (130-400); RBC 4.85 10x6/uL (4.00-5.40); RDW 14.4 % (11.5-14.5); WBC 5.5 10x3/uL (4.8-10.8)
[2019-01-06 17:30] LABS: MAGNESIUM - SERUM 2.1 mg/dL (1.8-2.4)
[2019-01-06 17:31] LABS: APPEARANCE CLEAR (CLEAR); COLOR YELLOW (YELLOW)
[2019-01-06 17:32] LABS: TROPONIN-I < 0.017 ng/mL (0.000-0.060)
[2019-01-06 17:32] LABS: BILIRUBIN NEGATIVE (NEGATIVE); EPITHELIAL CELLS 0-5 /hpf (0-5); GLUCOSE NEGATIVE (NEGATIVE); KETONE NEGATIVE (NEGATIVE); NITRITE NEGATIVE (NEGATIVE); PROTEIN NEGATIVE (NEGATIVE); RED CELLS - URINE OCC /hpf (0-5); UROBILINOGEN NORMAL (NORMAL); WHITE CELLS - URINE OCC /hpf (NEGATIVE)
[2019-01-06 17:33] LABS: BACTERIA FEW /hpf (NEGATIVE)
[2019-01-06 19:21] VITALS: BP 137/70
== END 2019-01-06 20:16 | disposition home or self-care (01) ==
LOC: D.ER 14:43
PROVIDERS: Emergency Medicine
DX: R53.81 Other malaise (principal); R53.1 Weakness; R42 Dizziness and giddiness

== ENCOUNTER 2019-05-10 15:06 | Emergency (ER) | payer MEDICARE ==
[~2019-05-10] VITALS: Ht 160 cm; Wt 63.2 kg
[2019-05-10 15:11] VITALS: Ht 160 cm; Wt 63.2 kg
[2019-05-10] MEDS ORDERED: ATIVAN1 MG PO (15:13)
[2019-05-10] MEDS ORDERED: ALBUTEROL SULF8.5 GM INH (15:55)
[2019-05-10] MEDS ORDERED: DURAFLU 325-201 EACH PO (15:58)
[2019-05-10 17:57] VITALS: BP 154/82
== END 2019-05-10 16:20 | disposition home or self-care (01) ==
LOC: D.ER 15:06
DX: J40 Bronchitis, not specified as acute or chronic (principal); I10 Essential (primary) hypertension

== ENCOUNTER 2019-08-19 07:13 | Emergency (ER) | payer MEDICARE ==
[~2019-08-19] VITALS: Ht 160 cm; Wt 65.9 kg
[~2019-08-19 07:13] MED LIST changes: +ALBUTEROL SULF8.5 GM INH; +DURAFLU 325-201 EACH PO
[2019-08-19 07:19] VITALS: Ht 160 cm; Wt 65.9 kg
[2019-08-19] MEDS ORDERED: OMNICEF300 MG PO (07:51)
[2019-08-19 08:05] VITALS: BP 129/74
== END 2019-08-19 08:07 | disposition home or self-care (01) ==
LOC: D.ER 07:13
DX: I88.9 Nonspecific lymphadenitis, unspecified (principal); H66.92 Otitis media, unspecified, left ear; R13.10 Dysphagia, unspecified; I10 Essential (primary) hypertension

== ENCOUNTER 2019-10-19 21:07 | Emergency (ER) | payer MEDICARE ==
[~2019-10-19] VITALS: Ht 160 cm; Wt 66.8 kg
[~2019-10-19 21:07] MED LIST changes: +OMNICEF300 MG PO
[2019-10-19 21:22] VITALS: Ht 160 cm; Wt 66.8 kg
[2019-10-19] MEDS ORDERED: KLONOPIN1 MG PO (21:24)
[2019-10-19 22:08] LABS: BASOPHILS 0.1 % (0-2); EOSINOPHILS 4.2 % (0-7); HEMOGLOBIN 12.8 g/dL (12-16); IMMATURE GRANULOCYTES 0.3 % (0-5); LYMPHOCYTES 29.1 % (15-50); MCH 26.7 pg (26.0-34.0); MCHC 30.5 g/dL (31.0-37.0); MCV 87.7 fL (80.0-100.0); MEAN PLATELET VOLUME 10.1 fL (7.4-10.4); MONOCYTES 10.3 % (2-11); PLATELET COUNT 187 10x3/uL (130-400); RBC 4.79 10x6/uL (4.00-5.40); RDW 13.8 % (11.5-14.5); WBC 7.1 10x3/uL (4.8-10.8)
[2019-10-19 22:15] LABS: BILIRUBIN NEGATIVE (NEGATIVE); GLUCOSE NEGATIVE (NEGATIVE); KETONE NEGATIVE (NEGATIVE); NITRITE NEGATIVE (NEGATIVE); UROBILINOGEN NORMAL (NORMAL)
[2019-10-19 22:16] LABS: BACTERIA FEW /hpf (NEGATIVE); EPITHELIAL CELLS 0-5 /hpf (0-5); WHITE CELLS - URINE 0-5 /hpf (NEGATIVE)
[2019-10-19 22:17] LABS: CALC OSMOLALITY 277 mosm/kg (275-300); CALCIUM 8.9 mg/dL (8.5-10.1); CARBON DIOXIDE 30.9 mmol/L (21.0-32.0); CHLORIDE - SERUM 104 mmol/L (98-107); CREATININE - SERUM 0.9 mg/dL (0.6-1.3); GLUCOSE 101 mg/dL (74-106); POTASSIUM - SERUM 4.1 mmol/L (3.5-5.1); SODIUM 139 mmol/L (136-145); UREA NITROGEN 12 mg/dL (7-18); eGFR NON AFRICAN AMERICAN 65 mL/min (90-120)
[2019-10-19 22:25] LABS: ALBUMIN 3.5 g/dL (3.4-5.0); ALKALINE PHOSPHATASE 60 U/L (30-120); ALT (SGPT) 23 U/L (10-68); BILIRUBIN - TOTAL 0.33 mg/dL (0.2-1.3); LIPASE 86 U/L (73-393); PROTEIN - SERUM 7.3 g/dL (6.4-8.2); TROPONIN-I < 0.017 ng/mL (0.000-0.060)
[2019-10-19 23:35] VITALS: BP 148/97
== END 2019-10-19 23:35 | disposition home or self-care (01) ==
LOC: D.ER 21:07
PROVIDERS: Family Medicine
DX: R10.9 Unspecified abdominal pain (principal); I10 Essential (primary) hypertension

== ENCOUNTER 2019-11-29 17:30 | Emergency (ER) | payer MEDICARE ==
[~2019-11-29] VITALS: Ht 160 cm; Wt 66.8 kg
[~2019-11-29 17:30] MED LIST changes: +KLONOPIN1 MG PO
[2019-11-29 17:34] VITALS: BP 161/82; Ht 160 cm; Wt 66.8 kg
[2019-11-29] MEDS ORDERED: METHOCARBAMOL500 MG PO (18:46)
== END 2019-11-29 19:25 | disposition home or self-care (01) ==
LOC: D.ER 17:30
DX: M62.838 Other muscle spasm (principal); M54.2 Cervicalgia; I10 Essential (primary) hypertension; K21.9 Gastro-esophageal reflux disease without esophagitis

== ENCOUNTER 2020-10-17 22:39 | Emergency (ER) | payer OTHER ==
[~2020-10-17] VITALS: Ht 160 cm; Wt 81.6 kg
[~2020-10-17 22:39] MED LIST changes: +METHOCARBAMOL500 MG PO
[2020-10-17 23:10] VITALS: BP 152/88; Ht 160 cm; Wt 81.6 kg
== END 2020-10-18 01:02 | disposition left against medical advice (07) ==
LOC: D.ER 22:39
DX: M25.569 Pain in unspecified knee (principal)